=== PATIENT | female | born 1940 | race African-American/Black ===

== ENCOUNTER 2016-08-21 05:48 | Inpatient (IN) ==
[~2016-08-21 05:48] MED LIST: ONDANSETRON 4 MG/2 ML VIAL IV STA
[2016-08-21] MEDS: NITROGLYCERIN DRIP 50 MG/250 ML BOTTLE IV SCH (05:54)
[2016-08-21] MEDS ORDERED: MORPHINE 2 MG/1 ML SYRINGE IV STA (05:56)
[2016-08-21] MEDS ORDERED: ASPIRIN 325 MG TABLET PO STA (05:56)
--- NOTE | 2016-08-21 05:56 | Emergency Department Note ---
Arrival <MyersRudy Xochilt - Last Filed: 08/21/16 05:58> <Jame Moore - Last Filed: 08/21/16 06:29> - Arrival Time Seen by Provider: 08/21/16 05:54 - History of Present Illness HPI Narrative: The patient arrives at the end of my shift. She arrives via ambulance with BiPAP in place. They called and was because she awoke acutely short of breath. She had decreased O2 sats at the EMS arrival. The patient has responded somewhat to BiPAP. She claims she takes no medications and has no prior medical history. She awoke acutely short of breath. She has had no nausea vomiting. She denies headache. She does not think she has had fever. (Rudy Myers) Allergies/Adverse Reactions: Allergies Allergy/AdvReac Type Severity Reaction Status Date / Time No Known Allergies Allergy Unverified 06/25/15 20:57 Home Medications: Home Medications Medication Instructions Recorded Confirmed Type No Known Home Medications [No 06/25/15 08/21/16 History Known Home Medications] Review of System - Review of System 12 point system: reviewed and no additional remarkable complaints except as stated <MyersRudy Xochilt - Last Filed: 08/21/16 05:58> Medical,Surgical,& Family Hx - Medical History Cardio: No history of: Hypertension Endocrine: No history of: Diabetes Mellitus (IDDM) <MyersRudy Xochilt - Last Filed: 08/21/16 05:58> Exam <LouisRudy Xochilt - Last Filed: 08/21/16 05:58> <Jame Moore - Last Filed: 08/21/16 06:29> Physical Examination: General: Patient is well-developed and well-nourished with moderate distress noted. She is tachypneic. HEENT: The extraocular muscles are intact. Oropharynx is moist. There is no erythema or exudate. The tympanic membranes are shiny bilaterally. Neck: There is no adenopathy. Full range of motion is noted without pain. The trachea is midline. No JVD is present. Lungs: There is normal excursion of the chest with the lungs demonstrating rales and rhonchi bilaterally. No subcostal retractions are present. There is no point tenderness present. Heart: The heart has a regular rate and rhythm with no gallops or murmurs. Abdomen: The abdomen is nontender and nondistended with no rebound, guarding, or masses. Bowel sounds are normal. Back: The back demonstrates a normal appearance with no evidence of trauma. Genitourinary: Not examined. Extremities: The extremities demonstrate no clubbing, cyanosis, or edema. The visualized range of motion is normal. They appear atraumatic. Neuro: Cranial nerves II through XII are checked and intact. There is no focal motor or sensory deficit seen in the extremities. Skin: Skin is warm and dry with no evidence of rash. (Rudy Myers) Vital Signs: Vital Signs Temperature 98.3 F 08/21/16 05:48 Pulse Rate 123 H 08/21/16 05:48 Respiratory Rate 26 H 08/21/16 05:48 Blood Pressure 255/137 08/21/16 05:48 O2 Sat by Pulse Oximetry 98 08/21/16 05:48 Course - Reevaluation(s) Time: 05:58 <Rudy Myers - Last Filed: 08/21/16 05:58> <Jame Moore - Last Filed: 08/21/16 06:29> Course Narrative: Patient was given Lasix and nitroglycerin infusion upon arrival. Patient placed on a Cardene infusion at 7.5 mg/h. Blood pressure has been decreasing, pulse rate decreasing, with increasing oxygen saturation since addition of cardene. Patient also placed on BiPAP at 14/8. (Jame Moore) - Reevaluation(s) Reevaluation #1: Dr. Nicholas Moore will assume care of the patient. (Rudy Myers) Results <Rudy Myers - Last Filed: 08/21/16 05:58> - Labs CBC & BMP: 08/21/16 06:01 Lab Results: I have reviewed the patients labs - Diagnostic Findings Procedure: Chest x-ray: image reviewed by me (Increased pulmonary markings bilaterally consistent with pulmonary edema. Cardiomegaly.) <Jame Moore - Last Filed: 08/21/16 06:29> - Labs Labs: Laboratory Tests 08/21/16 08/21/16 08/21/16 05:55 06:01 06:01 WBC 10.5 Hgb 12.5 Hct 41.2 Plt Count 253 INR 1.1 Urine pH 5.0 Ur Specific [place] 1.013 Urine RBC 6 Urine WBC 2 (Jame Moore) Critical Care Time <Rudy Myers - Last Filed: 08/21/16 05:58> Critical Care Time: Yes Total Critical Care Time: 60 <Jame Moore - Last Filed: 08/21/16 06:29> Attestation: Patient given nitroglycerin infusion, Cardene infusion, Lasix IV and placed on BiPAP. (Jame Moore) Disposition <Rudy Myers - Last Filed: 08/21/16 05:58> Case discussed with: patient, patient's family <Jame Moore - Last Filed: 08/21/16 06:29> Clinical Impression: Hypertensive emergency, Pulmonary edema Disposition: Still a Patient Condition: Critical
[2016-08-21] MEDS ORDERED: niCARdipine 25 MG/10 ML VIAL IV ONE (05:58)
[2016-08-21] MEDS: niCARdipine INJ 25 MG in SODIUM CHLORIDE 0.9% 240 ML IV SCH (06:03)
[2016-08-21] MEDS ORDERED: FUROSEMIDE 100 MG/10 ML VIAL ONE (06:08)
[2016-08-21] MEDS ORDERED: ONDANSETRON 4 MG/2 ML VIAL ONE (06:08)
[2016-08-21 06:10] LABS: Basophils % 0.3 % (0.0-0.8); Eosinophils # 0.1 10*3/uL (0.0-0.87); Hematocrit 41.2 VOL% (35.7-47.0); Hemoglobin 12.5 GM/DL (12.0-16.0); Immature Granulocytes % 1.2 %; Immature Granulocytes Absolute 0.13 #; Lymphocytes # 6.6 10*3/uL (1.4-4.0); Lymphocytes % 62.5 % (21.3-54.2); Mean Corpuscular HGB Conc 30.3 GM/DL (32-36); Mean Corpuscular Hemoglobin 29 PG (27-34); Mean Corpuscular Volume 95.6 FL (87-102); Monocytes # 0.6 10*3/uL (0.11-0.8); Platelet Count 253 T/CUMM (130-400); Red Blood Count 4.31 MC/CUMM (3.8-5.5); Red Cell Distribution Width 20.2 % (9.3-17.3); White Blood Count 10.5 T/CUMM (4-12)
[2016-08-21 06:15] LABS: Apearance,Urine Slightly Hazy (Clear); Bacteria,Urine Occasional /HPF (Few); Bilirubin,Urine Negative (Negative); Blood, Urine Negative (Negative); Glucose,Urine (UA) 50 mg/dL (Negative); Ketones,Urine Negative (Negative); Mucus,Urine Occasional /LPF (Occasional); Nitrite,Urine Negative (Negative); Protein,Urine 100 MG/DL; RBC,Urine 6 /HPF (0-4); Squamous Epithelial Cell,Urine Occasional /HPF (0-10); Urine Color Yellow (Yellow); Urine Specific Gravity 1.013 (1.001-1.035); Urine Urobilinogen < 2.0 EU/DL (0.2-1.0); WBC,Urine 2 /HPF (0-6)
[2016-08-21 06:19] LABS: INR 1.1; PT Patient Result 11.7 SECS
[2016-08-21] MEDS ORDERED: ASPIRIN 325 MG TABLET ONE (06:32)
[2016-08-21 06:36] LABS: Lymphocytes 69 % (20-55); Macrocytosis 1+; Platelet Estimate Adequate; Polychromasia Slight; Segmented Neutrophils 27 % (50-85); Total Cells Counted 100
[2016-08-21 06:40] LABS: Albumin 3.3 G/DL (3.4-5.0); Bilirubin,Total 0.5 MG/DL (0.2-1.0); Potassium 3.5 MMOL/L (3.5-5.1); Total Protein 7.5 G/DL (6.4-8.3)
[2016-08-21] MEDS ORDERED: ZALEPLON 5 MG CAPSULE PO PRN (06:51)
[2016-08-21] MEDS ORDERED: MORPHINE 2 MG/1 ML SYRINGE IV PRN (06:51)
[2016-08-21] MEDS ORDERED: ACETAMINOPHEN 325 MG TABLET PO PRN (06:51)
[2016-08-21] MEDS ORDERED: ONDANSETRON 4 MG/2 ML VIAL IV PRN (06:51)
[2016-08-21 07:13] LABS: Troponin I Only < 0.015 NG/ML (0.00-0.045)
--- NOTE | 2016-08-21 07:25 | XRay Report ---
XR chest 1V portable Indication: Chest pain Comparison: 25 June 2015 Findings: The heart and mediastinum are stable in size and configuration. The pulmonary vascularity is increased with bilateral increased interstitial lung density. No other lung infiltrates, effusions, pneumothorax or other abnormality is demonstrated. Impression: Findings suggest cardiac decompensation. PROCEDURE INTERPRETED AT [facility] DEPARTMENT OF RADIOLOGY Final Report Signed by: Dr. Juan Carlos Cuello
--- NOTE | 2016-08-21 07:36 | Hospitalist History & Physical ---
<Bonilla Freire - Last Filed: 08/21/16 07:49> Assessment and Plan - Time spent with patient Time spent with patient: Less than 30 minutes (1) Hypertensive emergency Status: Acute Assessment and plan: Continue Cardene gtt. Will consult cardiology for evaluation. Will obtain echo, carotids, lipid panel, HGA1C, Thyroid panel, and renal ultrasound. Current Visit: Yes (2) Pulmonary edema Status: Acute Assessment and plan: We will diurese. Will recheck BNP and cxr in AM. Continue bi-pap; consult pulmonology. Current Visit: Yes History of Present Illness Chief complaint: shortness of breath History of present illness: This is very unfortunate 76 year old female that presented to the ED this morning per EMS with a chief compliant of shortness of breath. She reports no medical history at the time of presentation. In addition, she reports that she takes no medications. She reports an acute onset of shortness of breath while sleeping. She reports that she was asleep and started "gasping in her sleep". She described the symptoms as "drowning". She was very alarmed and called for emergency assistance.At the time of EMS arrival, she was anxious with experiencing profound dyspnea with oxygen saturations in the 70's. She was placed on bi-pap at that time and transported to [facility] for evaluation. At the time of ED presentation, she was found to be grossly hypertensive at 255/ 137; however her respiratory status had slightly improved. She was placed ion a Cardene drip for management of her blood pressures.Labs were obtained; which revealed a BNP of 1148 and noted elevations in her hepatic function with an AST of 92, ALT of 108, and Alkaline phosphate of 209. Chest radiograph suggests cardiac decomposition. After discussion with both Dr. Moore and Dr. Fernandez, the patient will be admitted under the hospitalist services for continuation of care. We will consult pulmonary and cardiology to assist. Home Medications Medication Instructions Recorded Confirmed Type No Known Home Medications [No 06/25/15 08/21/16 History Known Home Medications] Allergies Allergy/AdvReac Type Severity Reaction Status Date / Time No Known Allergies Allergy Unverified 06/25/15 20:57 Medical,Surgical,& Family Hx - Medical History Cardio: No history of: Hypertension HEENT: History of: Glaucoma Endocrine: No history of: Diabetes Mellitus (IDDM) - Social History Smoking Status: Never smoker Frequency of Alcohol Use: None Type of Drug Use: None 12 point system: reviewed and no additional remarkable complaints except as stated Exam - Constitutional Vitals: Period Temp Pulse Resp BP Sys/Rivas Pulse Ox Last 24 Hr 98.3 F-98.3 F 94-123 19-26 119-255/53-137 98-100 General appearance: normal weight, mild distress - Head Head exam: Present: normal inspection, normocephalic, atraumatic - Eye Eye exam: Present: EOMI. Absent: conjunctival injection, nystagmus Pupils: Present: SHAYLA, normal accommodation - ENT ENT exam: Present: normal exam, normal external ear exam, normal oropharynx - Neck Neck exam: Present: normal inspection. Absent: lymphadenopathy, meningismus, tenderness, thyromegaly - Respiratory Respiratory exam: Present: accessory muscle use, prolonged expiratory phase, rhonchi. Absent: clear to auscultation bilaterally, chest wall tenderness, decreased breath sounds, rales, stridor, wheezes - Cardiovascular Cardiovascular exam: Present: JVD, tachycardia. Absent: carotid bruit, diastolic murmur, gallop, rubs, systolic murmur - GI/Abdominal GI/Abdominal exam: Present: normal bowel sounds, soft. Absent: firm, guarding, tenderness - Extremities Exam Extremities exam: Present: normal inspection, full ROM - Back Exam Back exam: Present: normal inspection - Neurological Exam Neurological exam: Present: alert, oriented X3, CN II-XII intact - Psychiatric Psychiatric exam: Present: anxious - Skin Skin exam: Present: normal color, warm, dry Results - Labs CBC & BMP: 08/21/16 06:01 08/21/16 06:01 Lab Results: I have reviewed the past 24 hour labs - Diagnostic Findings Procedure: Chest x-ray: other (cardiac decomposition) <Manpreet Fernandez - Last Filed: 08/21/16 11:32> Assessment and Plan - Time spent with patient Time spent with patient: Greater than 30 minutes (1) Acute CHF Status: Acute Assessment and plan: IV lasix. Consult Cardiology, f/u echo report. Current Visit: Yes (2) Hypertensive emergency Status: Acute Current Visit: Yes (3) Pulmonary edema Status: Acute Assessment and plan: Will do ABG, may able to take off Bipap. Consult Pulm. Current Visit: Yes (4) Acute dyspnea Status: Acute Assessment and plan: IV lasix, Oxygen, resp care. Current Visit: Yes History of Present Illness History of present illness: I saw and examed pt in her room today. I reviewed pt's lab results, CXR report and iamge today. I discussed with pt, Pulm, and RN in regarding her clinical status today. I agree with history, physical, assessmement and plan listed as above by our UNIT CLERK. Pt has family history of HTN. Past surgical history is reviewed. Pt does not take meds at home. Adm to CCU for Savana drip to control BP. Start IV lasix 40mg BID, Norvasc and Metoprolol. Consult Pulm and Cardiology. F/u echo report. Reeval in am. DVT and GI prophy. Adm for in pt care. Time spent: 55 min. Exam - Constitutional Vitals: Period Temp Pulse Resp BP Sys/Rivas Pulse Ox Last 24 Hr 98 F 93-101 17-23 117-142/53-67 96-100 Results - Labs CBC & BMP: 08/21/16 06:01 08/21/16 06:01
[2016-08-21 08:00] LABS: Risk Ratio 3.34; Thyroid Stimulating Hormone 5.87 uIU/ml (0.358-3.74)
--- NOTE | 2016-08-21 08:14 | EKG Report ---
Stationary ECG Study [facility] ER Test Date: 08/21/2016 5:56:55 AM Pat Name: AGGIE LUBIN Department: Room: 126 Gender: F Test Man: HUNTER : 1940 Requested by: Rudy Myers Order Number: [id number] Reading MD: IVORY VEGA Intervals [place] Rate: 136 P: 53 CO: 152 QRS: -44 QRSD: 96 T: 71 QT: 382 QTc: 461 Interpretive Statements PROBABLY SINUS TACHYCARDIA MARKED LEFT AXIS DEVIATION MINIMAL ST DEPRESSION Electronically Signed On 08-25-16 11:37:40 CDT by IVORY VEGA [email or web address]
--- NOTE | 2016-08-21 09:38 | EKG Report ---
Stationary ECG Study [facility] Test Date: 08/21/2016 9:37:52 AM Pat Name: AGGIE LUBIN Department: Room: 126 Gender: F Extension Professor: MANJULA : 1940 Requested by: Rudy Myers Order Number: [id number] Reading MD: IVORY VEGA Intervals [place] Rate: 93 P: 80 NE: 164 QRS: -9 QRSD: 102 T: 189 QT: 391 QTc: 442 Interpretive Statements SINUS RHYTHM WITH OCCASIONAL VENTRICULAR PREMATURE COMPLEXES MODERATE T-WAVE ABNORMALITY, CONSIDER LATERAL ISCHEMIA Electronically Signed On 08-25-16 11:50:05 CDT by IVORY VEGA [email or web address]
[2016-08-21] MEDS: FUROSEMIDE 40 MG/4 ML VIAL IV SCH ×2 (10:25→20:51)
[2016-08-21] MEDS: PANTOPRAZOLE 40 MG TABLET PO SCH (10:25)
[2016-08-21] MEDS: METOPROLOL TARTRATE 25 MG TABLET PO SCH ×2 (10:25→20:51)
[2016-08-21] MEDS: ENOXAPARIN 40 MG/0.4 ML SYRINGE SUBCUT SCH (10:25)
[2016-08-21] MEDS: amLODIPine 5 MG TABLET PO SCH (10:25)
[2016-08-21 10:26] LABS: Allen Test Positive; Pt O2 Delivery Device BIPAP
[2016-08-21 10:27] LABS: ABG Base Excess 0.9 MMOL/L (-2.5-2.5); ABG HCO3 25.3 MMOL/L (20-26); ABG Oxygen Saturation 99.6 % (95-100); ABG PCO2 39.7 MM HG (35-48); ABG PH 7.415 (7.35-7.45); ABG TCO2 22.7 MMOL/L (23-27)
--- NOTE | 2016-08-21 10:44 | Pulmonology Consult Note ---
History of Present Illness Chief complaint: Acute CHF. KRUEGER. S OB. Orthopnea. HBPpoor control History of present illness: Ms. Rojo is a 76 year old black female who arrived been asked to see in pulmonary consultation for evaluation and treatment. This patient was just admitted through the emergency room. She said she woke up in the middle of the night severely short of breath she did not have any significant cough. She said she felt like she was drowning. She absolutely denies any chest pain. She denies dysphagia. At times she does have gastroesophageal reflux and this is controlled with Pepcid. She denies any peripheral edema. Patient says she takes no medicines on a regular basis and that she has been in her usual health able to get around and do things without any symptoms. She has had no sputum and no hemoptysis. She denies any pain in her legs. The remainder the review of systems is negative. Allergies. None known Home medicines. Occasional Pepcid. Past history. Gastroesophageal reflux Social history patient denies alcohol and she says she has never smoked Family history. Noncontributory. Chest x-ray. [place] pulmonary edema. Lab. Natruretic peptide is elevated 1148. Alkaline Carolyn is elevated at 209. Transaminases are elevated. Total bilirubin is 0.5. Sodium potassium and chloride are within the normal range. Creatinine is 0.9 with a BUN of 20. White blood cell count is 10,500 with 29 segs and 62.5 lymphs. Platelets of 258 ,000. H&H is 12.5/41.2 with normal indices and elevated red blood cell distribution with platelets 253,000. INR is 1.1. Free T4 is elevated 1.71 but TSH is also elevated 5.870 total protein is normal at 7.5 albumin is low at 3.3 globulins are slightly up at 4.2. Lipids are noted. Urine shows no evidence of infection. ABGs. FiO2 100%. PH is 7.415. PCO2 is 39.7. PO2 is 184. Bicarb is 25.3. Physical exam. Vital signs. See below note that admit blood pressures were markedly elevated and these have now come under control. Psychiatric. Oriented 3. Good historian. Eyes lips tongue are normal. Neck is symmetrical with no meningismus. Thyroid was not palpated. Lymphatics. No submandibular cervical supraclavicular or epitrochlear adenopathy. Neurologic. Cranial nerves are intact. Long track motor functions intact. Chest. Stiff breath sounds close to the year which are probably round. Heart. Lateral PMI. Slightly hyper dynamic precordium. Abdomen. Nontender. Positive bowel sounds Extremities. Trace of pretibial edema. Knee Musculoskeletal no gross abnormalities of the cervical thoracic and lumbar spine noted while the patient is lying in bed Skin of face and hands show no cancerous infectious lesions no other areas were examined. Arterial carotid upstroke is fair upper extremity pulses are palpable lower extremity pulses nonpalpable no evidence of lower extremity ischemia Venous exam of the neck and upper extremities are normal lower extremities show trace of pedal edema pedal edema bilaterally. The remainder the exam is noncontributory. Impression. 1. Acute severe shortness of breath. Based on chest x-ray and lab this appears to be acute congestive heart failure. Chest x-ray is markedly change compared to an old chest x-ray 2. Severe hypoxemia probably secondary to #1. Look for other causes. 3. High blood pressure under poor control prior to admission. 4. History of gastroesophageal reflux disease. 5. Abnormal liver function tests. Etiology undetermined. 6. Elevated TSH and free T4. We will repeat free T4 is these are not likely correct. 7. Elevated glucoses. Look for underlying diabetes mellitus. Plan. 1. Diuresis 2. Daily chest x-ray ABGs BMP and BNP 3. Repeat thyroid function tests 4. Ultrasound of the liver 5. Doppler venograms of the lower extremities 6. See orders Home Medications Medication Instructions Recorded Confirmed Type No Known Home Medications [No 06/25/15 08/21/16 History Known Home Medications] Allergies Allergy/AdvReac Type Severity Reaction Status Date / Time No Known Allergies Allergy Unverified 06/25/15 20:57 Exam (Pulmonay) H&P - Constitutional Vitals: Period Temp Pulse Resp BP Sys/Rivas Pulse Ox Last 24 Hr 98 F 93-101 17-23 117-142/53-67 96-100 Medical,Surgical,& Family Hx - Medical History Cardio: No history of: Hypertension HEENT: History of: Glaucoma Endocrine: No history of: Diabetes Mellitus (IDDM) Hematology: History of: Anemia - Surgical History Cardiac Surgeries: Patient Denies: Cardiac Catheterization Thoracic Surgeries: Patient denies;: Organ Transplant - Family History Family History: Reports;: Family Diabetes (mother), Family Heart Disease (sister , father), Family Hypertension (sister, brother, mother, father) Denies;: Family Cancer, Family Hematology, Family Psychiatric Problems, Family Stroke, Additional Family History - Social History Smoking Status: Former smoker Frequency of Alcohol Use: None Type of Drug Use: None Results - Labs CBC & BMP: 08/21/16 06:01 08/21/16 06:01
--- NOTE | 2016-08-21 10:47 | Ultrasound Report ---
Venous Doppler ultrasound bilateral lower extremities Indication: Shortness of breath Comparison: None available Findings: No evidence of echogenic, noncompressible thrombus seen in the visualized veins of the extremities. Color Doppler venous waveform pattern is within normal limits. Impression: No evidence of deep venous thrombosis. Ultrasound images stored and captured. PROCEDURE INTERPRETED AT [facility] DEPARTMENT OF RADIOLOGY Final Report Signed by: Dr. Juan Carlos Cuello
--- NOTE | 2016-08-21 10:52 | Ultrasound Report ---
Renal ultrasound Indication: TOD Comparison: None available Findings: Kidneys are normal in size and echogenicity. No hydronephrosis or nephrolithiasis is seen. The right renal length is 10.6 cm. The left renal length is 10.8 cm. No free fluid or other abnormality is seen. Impression: No evidence of abnormality demonstrated. Ultrasound images stored and captured. PROCEDURE INTERPRETED AT [facility] DEPARTMENT OF RADIOLOGY Final Report Signed by: Dr. Juan Carlos Cuello
--- NOTE | 2016-08-21 11:10 | Ultrasound Report ---
Carotid artery ultrasound Indication: Congestive heart failure, hypertension Comparison: None available Color Doppler flow and spectral analysis was performed. Findings: Small amount of atherosclerotic plaque is present in both proximal internal carotid arteries. The peak systolic velocity in the right is 109 cm/s . Ratio of flow is 1.3. The peak systolic velocity in the left is 96 cm/s . Ratio of flow is 1.3 Bilateral antegrade vertebral flow is seen. Impression: No evidence of hemodynamically significant stenosis is seen, 0-49% estimated stenosis. Consensus conference on the carotid ultrasound criteria used. Ultrasound images were captured and stored. PROCEDURE INTERPRETED AT [facility] DEPARTMENT OF RADIOLOGY Final Report Signed by: Dr. Juan Carlos Cuello
--- NOTE | 2016-08-21 11:10 | Cardiology Consult Note ---
<Soo Frank E - Last Filed: 08/21/16 11:00> Assessment and Plan - Time spent with patient Time spent with patient: Greater than 30 minutes (Due to assessment, plan, and documentation.) (1) Hypertensive emergency Status: Acute Assessment and plan: Required Cardene infusion in the emergency room. This is currently being held. Blood pressure is currently within normal limits. She has been started on metoprolol 25 mg p.o. twice daily, Norvasc 5 mg p.o. daily. Current Visit: Yes (2) Pulmonary edema Status: Acute Assessment and plan: Echocardiogram is pending. Pulmonology is following. Continue oxygen as needed. Will receive Lasix 40 mg IV every 12 hours. Current Visit: Yes (3) Acute dyspnea Status: Acute Assessment and plan: Bilateral lower extremity venous Dopplers negative for DVT. Carotid ultrasound pending. Echocardiogram pending. Her dyspnea is most likely related to acute onset CHF. She will be diuresed and monitored closely. Dr. Murray to follow with further plan and addendum. Current Visit: Yes (4) History of gastroesophageal reflux (GERD) Status: Chronic Assessment and plan: Well controlled with Pepcid. Current Visit: Yes (5) Former smoker Status: Chronic Assessment and plan: Quit smoking 2 years ago. Formally smoked for approximately 55 years. Current Visit: Yes History of Present Illness - Data of Consult Patient: new to practice Consult date: 08/21/16 Requesting Physician: Rebel Fermin Primary care physician: Jose Juan Shepherd - Consult Narrative Reason for consult: SOB, hypertensive urgency History of present illness: COMMUNITY HEALTH REPRESENTATIVE: NONE PCP: JOSE JUAN SHEPHERD NP Ms. 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 She does not have a significant medical history. She has occasional gastroesophageal reflux disease that is controlled with Pepcid. Surgical history includes prior hysterectomy, otherwise noncontributory. She takes no medications on a regular basis. Risk factors are significant for: Hypertension, age, family history of CAD, former smoker. She reports she quit smoking approximately 2 years ago but was previously a light smoker for approximately 55 years. She tells me her father had CABG at age 62, sister had CABG at 69, and her 2 brothers also have heart problems. She has seen Dr. Davis, gambling floor supervisor, in the past for colonoscopy and post polypectomy colonic bleeding June 2015 requiring transfusion of PRBCs. Jose Juan Hernandez NP has been following her for anemia. H&H on admission is normal. She presented to the emergency room this morning with acute dyspnea. She tells me that she woke up this morning to go the bathroom when she returned to bed she felt like she could not breathe. This was worse when she tried to lay down and she states she felt like she was drowning. She denies any chest pain, palpitations, dizziness, lightheadedness, or syncope. She reports she has not noticed any swelling recently. Up until this morning, she has been in her usual state of health and has not had any activity limitations. She denies painful inspiration, cough. Renal ultrasound shows no evidence of abnormality. Bilateral lower extremity venous Doppler reveals no evidence of DVT. Bilateral carotid ultrasound and liver ultrasound are pending. On admission, her creatinine is 0.9, BNP 1148, potassium 3.5, elevated LFTs. Triglycerides are 100, total cholesterol 197, LDL 127, HDL 59. Her TSH and free T4 also elevated. Dr. Murray to follow with further plan and addendum. CC: Manpreet Fernandez MD - Home Medications and Allergies Home Medications: Home Medications Medication Instructions Recorded Confirmed Type No Known Home Medications [No 06/25/15 08/21/16 History Known Home Medications] Allergies/Adverse Reactions: Allergies Allergy/AdvReac Type Severity Reaction Status Date / Time No Known Allergies Allergy Unverified 06/25/15 20:57 Review of systems: - Constitutional: Present: As per HPI. Absent: anorexia, chills, daytime sleepiness, excessive sweating, fever(s), frequent falls, headache(s), increased appetite, lethargy, malaise, night sweats, stops breathing during sleep, weakness, weight gain, weight loss, fatigue. - EENT Eyes: Present: As per HPI. Absent: blurry vision, diplopia, loss of vision Ears: Present: As per HPI. Absent: decreased hearing, ear discharge, ear pain Nose, mouth and throat: Present: As per HPI. Absent: dysphagia, epistaxis, headache(s), hoarseness, lip swelling, nasal congestion, neck mass, neck pain, sinus pressure, sore throat, throat swelling, tongue swelling, vertigo - Cardiovascular: Present: dyspnea, as per HPI. Absent: chest pain at rest, chest pain with activity, dyspnea on exertion, edema, claudication, diaphoresis , radiating jaw, neck or arm pain, lightheadedness, orthopnea, palpitations, PND - Respiratory: Present: dyspnea, as per HPI. Absent: dyspnea on exertion, cough , hemoptysis, wheezing, snoring, pain on inspiration - Gastrointestinal: Present: constipation, occasional heartburn, As per HPI. Absent: abdominal pain, bloating, change in bowel habits, diarrhea, hematemesis , hematochezia, loose stools, melena, nausea, vomiting - Genitourinary: Present: As per HPI. Absent: difficulty urinating, dysuria, flank pain, hematuria, nocturia, urinary frequency, urinary incontinence - Musculoskeletal: Present: As per HPI. Absent: arthralgias, back pain, joint swelling, limited range of motion, muscle cramps, muscle weakness, myalgias - Neurological: Present: As per HPI. Absent: abnormal gait, abnormal speech, behavioral changes, confusion, convulsions, disequilibrium, dizziness, focal weakness, frequent falls, headache(s), memory loss, numbness, paresthesias, radicular pain, syncope, tremor(s) - Psychiatric: Present: As per HPI. Absent: anxiety, confusion, depression, panic attacks - Endocrine: Present: As per HPI. Absent: cold intolerance, fatigue, heat intolerance, polydipsia, polyphagia - Hematologic/Lymphatic: Present: As per HPI. Absent: easy bleeding, easy bruising, lymphadenopathy Medical,Surgical,& Family Hx - Medical History Cardio: No history of: Hypertension HEENT: History of: Glaucoma Endocrine: No history of: Diabetes Mellitus (IDDM) Hematology: History of: Anemia (Requiring previous blood transfusion.) - Surgical History Cardiac Surgeries: Patient Denies: Cardiac Catheterization Thoracic Surgeries: Patient denies;: Organ Transplant Reproductive Surgeries: Surgical HX of;: Hysterectomy - Family History Family History: Reports;: Family Diabetes (mother), Family Heart Disease (sister , father), Family Hypertension (sister, brother, mother, father) Denies;: Family Cancer, Family Hematology, Family Psychiatric Problems, Family Stroke, Additional Family History - Social History Smoking Status: Former smoker Have you smoked in the last 12 months: No Frequency of Alcohol Use: None Type of Drug Use: None Marital Status: Lives With:: Alone Functional capacity: independent ambulation Physical Examination Vital Signs Temp Pulse Resp BP Pulse Ox 98.3 F 123 H 26 H 255/137 98 08/21/16 05:48 08/21/16 05:48 08/21/16 05:48 08/21/16 05:48 08/21/16 05:48 Other: General appearance: Pleasant and cooperative. Normal weight. - Head Head exam: Present: normal inspection, normocephalic, atraumatic. Absent: hematoma, laceration - Eye Eye exam: Present: EOMI. Absent: conjunctival injection, nystagmus, periorbital swelling, scleral icterus, laceration to eyelids Pupils: Present: PERRL. Absent: constricted, dilated, fixed, irregular, unequal - ENT ENT exam: Present: normal exam, normal external ear exam - Neck Neck exam: Present: normal inspection. Absent: lymphadenopathy, meningismus, tenderness - Respiratory Respiratory exam: Present: Bibasilar crackles noted posteriorly. Absent: accessory muscle use, chest wall tenderness - Cardiovascular Cardiovascular exam: Present: regular rate and rhythm. Absent: carotid bruit, gallop, JVD, rubs, murmur - GI/Abdominal GI/Abdominal exam: Present: normal bowel sounds, soft. Absent: distended, firm , guarding, hernia, mass, tenderness, rebound. - Extremities Exam Extremities exam: Present: normal inspection, normal capillary refill. Upper extremity pulses 2+. Lower extremity pulses 2+. Trace pitting edema to bilateral lower extremities. Absent: calf tenderness - Back Exam Back exam: Present: normal inspection. Absent: muscle spasm, vertebral tenderness - Neurological Exam Neurological exam: Present: alert, oriented X3, grossly intact without resting or essential tremor - Psychiatric Psychiatric exam: Present: normal affect, normal mood - Skin Skin exam: Present: normal color, warm, dry, intact. Absent: cyanosis, diaphoretic, rash, urticaria Result/EKG - Labs CBC & BMP: 08/21/16 06:01 08/21/16 06:01 Labs: Laboratory Results - last 24 hr 08/21/16 08/21/16 08/21/16 07:39 10:22 Unknown ABG pH 7.415 ABG pCO2 39.7 ABG pO2 184.0 H ABG HCO3 25.3 ABG Total CO2 22.7 L ABG O2 Saturation 99.6 ABG Base Excess 0.9 FiO2 100.00 Triglycerides 100 Cholesterol 197 LDL Cholesterol 127.0 VLDL Cholesterol 20.0 HDL Cholesterol 59 Heart Disease Risk Ratio 3.34 Free T4 1.71 H TSH 3rd Generation 5.870 H <Dany Murray - Last Filed: 08/21/16 12:07> History of Present Illness - Consult Narrative History of present illness: Patient personally interviewed and examined and chart reviewed. Discussed case with Soo Frank COMPUTER OPERATIONS MANAGER. I agree with the history as well as examination assessment. In summation in addition Ms. Rojo is a 76 year old female who overall is not had any kind of cardiac history or cardiac testing previously. The patient presented short of breath that apparently woke her up at home and was found to have primary vascular congestion and severely elevated blood pressure of 255/ 137. Patient was started on Cardizem infusion. She was given Lasix IV. Her chest x-ray appeared to have congestive heart failure and some cardiomegaly. With therapy and diuresis the patient's blood pressures normalized and she is breathing much better. She has no complains this time. We await her echocardiogram. Her lab work revealed normal CBC, but her blood gases are unremarkable, chemistries with normal troponin but elevated BNP. Potassium was borderline. We await the patient's echocardiogram at this time. She has serial cardiac enzymes will allow work ordered. We will monitor the patient with the primary service. Further recommendations to follow after evaluation has continued. CC: Manpreet Fernandez MD Physical Examination Vital Signs Temp Pulse Resp BP Pulse Ox 98.3 F 123 H 26 H 255/137 98 08/21/16 05:48 08/21/16 05:48 08/21/16 05:48 08/21/16 05:48 08/21/16 05:48 Result/EKG - Labs CBC & BMP: 08/21/16 06:01 08/21/16 06:01 Labs: Laboratory Results - last 24 hr 08/21/16 08/21/16 08/21/16 07:39 10:22 11:03 ABG pH 7.415 ABG pCO2 39.7 ABG pO2 184.0 H ABG HCO3 25.3 ABG Total CO2 22.7 L ABG O2 Saturation 99.6 ABG Base Excess 0.9 FiO2 100.00 Hemoglobin A1c Triglycerides 100 Cholesterol 197 LDL Cholesterol 127.0 VLDL Cholesterol 20.0 HDL Cholesterol 59 Heart Disease Risk Ratio 3.34 Free T4 1.34 TSH 3rd Generation 5.870 H 08/21/16 08/21/16 11:03 Unknown ABG pH ABG pCO2 ABG pO2 ABG HCO3 ABG Total CO2 ABG O2 Saturation ABG Base Excess FiO2 Hemoglobin A1c 5.4 Triglycerides Cholesterol LDL Cholesterol VLDL Cholesterol HDL Cholesterol Heart Disease Risk Ratio Free T4 1.71 H TSH 3rd Generation
[2016-08-21 12:17] LABS: Barbiturates Screen,Urine Negative (Negative); Benzodiazepines Screen,Urine Negative (Negative); Cannabinoid Screen,Urine Negative (Negative); Opiate Screen,Urine Positive (Negative); Phencyclidine Screen,Urine Negative (Negative)
--- NOTE | 2016-08-21 12:30 | EKG Report ---
Stationary ECG Study [facility] Test Date: 08/21/2016 12:29:55 PM Pat Name: AGGIE LUBIN Department: Room: 126 Gender: F Sales Office Manager: SANA : 1940 Requested by: Rudy Myers Order Number: [id number] Reading MD: IVORY VEGA Intervals [place] Rate: 86 P: 61 OK: 189 QRS: -27 QRSD: 113 T: 214 QT: 427 QTc: 470 Interpretive Statements SINUS RHYTHM BORDERLINE LEFT AXIS DEVIATION MILD INTRAVENTRICULAR CONDUCTION DELAY MODERATE T-WAVE ABNORMALITY, CONSIDER ANTEROLATERAL ISCHEMIA Electronically Signed On 08-25-16 11:54:56 CDT by IVORY VEGA [email or web address]
[2016-08-21 13:50] LABS: Troponin I Only 0.018 NG/ML (0.00-0.045)
--- NOTE | 2016-08-21 17:22 | Ultrasound Report ---
Exam: US liver Date: 08/21/2016 10:39 AM Comparison: None Indication: Elevated liver function tests Technique:[Multiple transabdominal real-time scans were obtained of the right upper quadrant. Color flow scans were obtained. Ultrasound images were captured and stored.] Findings: No gallbladder pathology is identified. CBD is normal in size measuring 4.6 mm. The liver is normal in size with no definite masses. The right kidney measures 95 mm length with no mass or hydronephrosis. The visualized pancreas and aorta have an unremarkable appearance. The aortic bifurcation is obscured by bowel gas. Color flow documented in the IVC. Impression: No definite right upper quadrant pathology identified. PROCEDURE INTERPRETED AT [facility] Final Report Signed by: Dr. Yancy Ortega
[2016-08-21 19:35] LABS: Troponin I Only 0.021 NG/ML (0.00-0.045)
--- NOTE | 2016-08-21 19:44 | ECHO Report ---
Wendy Rojo Exam Date: 08/21/2016 09:24 Referring Physician: Technologist: Angie Pa RDCS Age: 76 Ht (in): 62 Wt (lb): 120 Gender: F Exam Location: [facility] Echo Indications: Hypertensive emergency, Acute pulmonary edema, Dyspnea, unspecified, Essential (primary) hypertension, GERD, Heart failure, unspecified BP: 117 / 59 HR: 94 Rhythm: Sinus Technical Quality: Good IMPRESSIONS 1. Left ventricle is normal size with ejection fraction 35-40% with global hypokinesis. There is at least mild concentric left ventricular hypertrophy. 2. Right and left atrium are mildly enlarged. 3. There is no significant valvular abnormality anatomically or by Doppler. 4. There is a small hemodynamically insignificant pericardial effusion. 5. Pleural effusion appears to be present. MEASUREMENTS (Male / Female) Normal Values 2D ECHO LV Diastolic Diameter PLAX 4.9 cm 4.2 - 5.9 / 3.9 - 5.3 cm LV Systolic Diameter PLAX 4.0 cm LV Fractional Shortening PLAX 18.2 % IVS Diastolic Thickness 1.0 cm 0.6 - 1.0 / 0.6 - 0.9 cm LVPW Diastolic Thickness 1.1 cm 0.6 - 1.0 / 0.6 - 0.9 cm RV Internal Dim ED PLAX 3.2 cm Aortic Root Diameter 2.7 cm LA Systolic Diameter LX 4.4 cm 3.0 - 4.0 / 2.7 - 3.8 cm FINDINGS Left Ventricle Normal left ventricular cavity size. The overall ejection fraction appears to be 35-40%. There is at least mild concentric left ventricular hypertrophy Right Ventricle The right ventricle is normal in size and function. Right Atrium The right atrium is mildly enlarged. Left Atrium The left atrium is mildly enlarged. Mitral Valve Thickened mitral valve. Trace mitral valve regurgitation. Aortic Valve Aortic valve is a tricuspid structure with mild sclerosis without stenosis or regurgitation. Tricuspid Valve Morphologically normal tricuspid valve. Trace tricuspid valve regurgitation. Pulmonic Valve Morphologically normal pulmonic valve without significant stenosis. There is no pulmonic regurgitation. Pericardium Small hemodynamically insignificant pericardial effusion. There is a pleural effusion present. Aorta Normal ascending aorta dimension. Dany Murray MD (Electronically Signed) Final Date: 21 August 2016 19:43
[2016-08-22 05:14] LABS: Calcium 8.8 MG/DL (8.5-10.1); Magnesium 2.2 MG/DL (1.8-2.4); Osmolality,Calculated 284.8 MOS/KG (273-304)
[2016-08-22] MEDS: ENOXAPARIN 40 MG/0.4 ML SYRINGE SUBCUT SCH (06:09)
[2016-08-22] MEDS: NITROGLYCERIN DRIP 50 MG/250 ML BOTTLE IV SCH (06:09)
[2016-08-22] MEDS: niCARdipine INJ 25 MG in SODIUM CHLORIDE 0.9% 240 ML IV SCH (06:09)
--- NOTE | 2016-08-22 08:16 | Cardiology Progress Note ---
<Soo Frank E - Last Filed: 08/22/16 08:07> Assessment and Plan - Time spent with patient Time spent with patient: Less than 30 minutes (1) Hypertensive emergency Status: Acute Assessment and plan: Blood pressure is currently within normal limits. She has been started on metoprolol 25 mg p.o. twice daily, Norvasc 5 mg p.o. daily. Echo yesterday revealed EF of 35-40%. We will start her on low-dose CORI inhibitor. If she is unable to tolerate all these medications, we may need to discontinue the Norvasc. Current Visit: Yes (2) Pulmonary edema Status: Acute Assessment and plan: Echo revealed EF 35-40%. No significant valvular abnormalities. Pulmonology is following. Continue oxygen as needed. Will receive Lasix 40 mg IV every 12 hours. She has been diuresing well and is much improved today. Potassium is 3.0 today. We will start her on p.o. potassium replacement. Current Visit: Yes (3) Acute dyspnea Status: Acute Assessment and plan: Bilateral lower extremity venous Dopplers negative for DVT. Carotid ultrasound reveals no significant stenosis, 0-49%. Echocardiogram reveals EF 35-40%, no significant valvular abnormalities. Her dyspnea is most likely related to acute onset CHF. She will continue to be diuresed and monitored closely. She has been started on beta-shira and CORI inhibitor. Dr. Murray to follow with further plan and addendum. Current Visit: Yes (4) History of gastroesophageal reflux (GERD) Status: Chronic Assessment and plan: Well controlled with Pepcid. Current Visit: Yes (5) Former smoker Status: Chronic Assessment and plan: Quit smoking 2 years ago. Formally smoked for approximately 55 years. Current Visit: Yes Cardiology - PN: Subj Interval history: Animal Care Attendant: None, with the Dr. Murray following discharge PCP: Prudence Fields NP Ms. Rojo is doing well this morning. She is breathing much better and is only on O2 NBP. Blood pressure is much better controlled. She continues on metoprolol and Norvasc. Echocardiogram done yesterday reveals EF 35-40% with global hypokinesis and mild concentric left ventricular hypertrophy. There were no significant valvular abnormalities. We have started her on a low-dose CORI inhibitor. We may wind up needing to discontinue the Norvasc if she cannot tolerate these medications. Potassium is 3.0 today. We will start her on p.o. potassium replacement. Creatinine is 0.8. BNP remains elevated at 1573 today. She continues to have a few bibasilar crackles posteriorly. Today unable to hear a soft left carotid bruit. Carotid ultrasound yesterday revealed no significant stenosis bilaterally, 0-49%. Overall, she is much improved since admission. Exam (Progress Note) - Constitutional Vitals: Period Temp Pulse Resp BP Sys/Rivas Pulse Ox Last 24 Hr 97 F-98.4 F 76-102 15- 99-147/49-130 95-100 Exam: General: Present: Appears Well, No Apparent Distress. Pleasant and cooperative. Appears comfortable. HEENT: Present: PERRL, Normocephaly, atraumatic. Mucus Membranes Moist. No jaundice noted. Conjunctiva moist and clear, sclerae anicteric Neck: Present: Supple Neck, Midline Trachea, No Masses, soft left carotid bruit , No tenderness Cardiac: Present: Regular Rate and Rhythm, No Murmur Lungs: Present: Few bibasilar crackles posteriorly, otherwise clear to auscultation bilaterally. Neuro: Present: Awake, alert, and oriented x3. Moves all extremities well without hemiparesis or paralysis. Grossly Intact. Absent: Resting Tremor, Essential Tremor Abdomen: Present: Soft, Active Bowel Sounds, No Masses, Non-Tender, nondistended. No abdominal bruit or thrill noted. Skin: Present: Clear. Absent: Rash, No skin breakdown. Back: Normal inspection, no vertebral tenderness. Musculoskeletal: Present: No Fluid Collection, No Pain, Normal Range of Motion Extremities: Present: Normal Gait, No Clubbing, No Cyanosis, Upper Extr. Pulses 2+, Lower Extr. Pulses 2+, No edema. Capillary refill less than 3 seconds. Result/EKG - Labs CBC & BMP: 08/21/16 06:01 08/22/16 04:27 Lab Results: I have reviewed the past 24 hour labs Labs: Laboratory Results - last 24 hr 08/21/16 08/21/16 08/21/16 10:22 11:03 11:03 ABG pH 7.415 ABG pCO2 39.7 ABG pO2 184.0 H ABG HCO3 25.3 ABG Total CO2 22.7 L ABG O2 Saturation 99.6 ABG Base Excess 0.9 FiO2 100.00 Sodium Potassium Chloride Carbon Dioxide Anion Gap BUN Creatinine GFR Calculation BUN/Creatinine Ratio Glucose Hemoglobin A1c 5.4 Calculated Osmolality Calcium Magnesium Total Creatine Kinase CK-MB (CK-2) Troponin I B-Natriuretic Peptide Free T4 1.34 Urine Opiates Screen Ur Barbiturates Screen Ur Phencyclidine Scrn U Amphetamine/Methamph U Benzodiazepines Scrn U Cocaine Metab Screen U Cannabinoids Screen 08/21/16 08/21/16 08/21/16 11:48 12:59 19:01 ABG pH ABG pCO2 ABG pO2 ABG HCO3 ABG Total CO2 ABG O2 Saturation ABG Base Excess FiO2 Sodium Potassium Chloride Carbon Dioxide Anion Gap BUN Creatinine GFR Calculation BUN/Creatinine Ratio Glucose Hemoglobin A1c Calculated Osmolality Calcium Magnesium Total Creatine Kinase 95 97 CK-MB (CK-2) 3.9 H 3.3 Troponin I 0.018 0.021 B-Natriuretic Peptide Free T4 Urine Opiates Screen Positive H Ur Barbiturates Screen Negative Ur Phencyclidine Scrn Negative U Amphetamine/Methamph Negative U Benzodiazepines Scrn Negative U Cocaine Metab Screen Negative U Cannabinoids Screen Negative 08/21/16 08/22/16 08/22/16 Unknown 04:27 04:27 ABG pH ABG pCO2 ABG pO2 ABG HCO3 ABG Total CO2 ABG O2 Saturation ABG Base Excess FiO2 Sodium 144 Potassium 3.0 L Chloride 105 Carbon Dioxide 31 Anion Gap 11.0 BUN 10 Creatinine 0.80 GFR Calculation 71 BUN/Creatinine Ratio 12.00 Glucose 94 Hemoglobin A1c Calculated Osmolality 284.8 Calcium 8.8 Magnesium 2.2 Total Creatine Kinase CK-MB (CK-2) Troponin I B-Natriuretic Peptide 1573 H Free T4 1.71 H Urine Opiates Screen Ur Barbiturates Screen Ur Phencyclidine Scrn U Amphetamine/Methamph U Benzodiazepines Scrn U Cocaine Metab Screen U Cannabinoids Screen - EKG EKG results: interpreted by me, sinus rhythm <Dany Murray - Last Filed: 08/22/16 11:07> Cardiology - PN: Subj Interval history: Patient personally interviewed and examined by me as well as chart reviewed. Discussed case with Soo Frank NP. I agree with his history, exam and assessment. The patient's blood pressure doing much better on present regimen. She is not short of breath. Chest x-ray looks better. Her echocardiogram reveals the ejection fraction 35-40% with concentric left ventricular hypertrophy. This certainly would indicate a nonischemic type cardiomyopathy. Her exam reveals her likely fairly clear with a few crackles but good air movement. Cardiovascular exam is fairly unremarkable. She is stable at this time with continued elevated BNP. She needs continued treatment for her primary vascular congestion and cardiomyopathy. She needs continuing her beta shira and CORI inhibitor. She can go certainly to telemetry and hopefully discharge seen. Further workup can be carried out as an outpatient. Exam (Progress Note) - Constitutional Vitals: Period Temp Pulse Resp BP Sys/Rivas Pulse Ox Last 24 Hr 97 F-98.4 F 76-100 14-24 99-147/49-130 95-100 Result/EKG - Labs CBC & BMP: 08/21/16 06:01 08/22/16 04:27 Labs: Laboratory Results - last 24 hr 08/21/16 08/21/16 08/21/16 11:03 11:03 11:48 Sodium Potassium Chloride Carbon Dioxide Anion Gap BUN Creatinine GFR Calculation BUN/Creatinine Ratio Glucose Hemoglobin A1c 5.4 Calculated Osmolality Calcium Magnesium Total Bilirubin Direct Bilirubin Indirect Bilirubin AST ALT Alkaline Phosphatase Total Creatine Kinase CK-MB (CK-2) Troponin I B-Natriuretic Peptide Total Protein Albumin Free T4 1.34 Urine Opiates Screen Positive H Ur Barbiturates Screen Negative Ur Phencyclidine Scrn Negative U Amphetamine/Methamph Negative U Benzodiazepines Scrn Negative U Cocaine Metab Screen Negative U Cannabinoids Screen Negative 08/21/16 08/21/16 08/22/16 12:59 19:01 04:27 Sodium 144 Potassium 3.0 L Chloride 105 Carbon Dioxide 31 Anion Gap 11.0 BUN 10 Creatinine 0.80 GFR Calculation 71 BUN/Creatinine Ratio 12.00 Glucose 94 Hemoglobin A1c Calculated Osmolality 284.8 Calcium 8.8 Magnesium 2.2 Total Bilirubin Direct Bilirubin Indirect Bilirubin AST ALT Alkaline Phosphatase Total Creatine Kinase 95 97 CK-MB (CK-2) 3.9 H 3.3 Troponin I 0.018 0.021 B-Natriuretic Peptide Total Protein Albumin Free T4 Urine Opiates Screen Ur Barbiturates Screen Ur Phencyclidine Scrn U Amphetamine/Methamph U Benzodiazepines Scrn U Cocaine Metab Screen U Cannabinoids Screen 08/22/16 08/22/16 04:27 Unknown Sodium Potassium Chloride Carbon Dioxide Anion Gap BUN Creatinine GFR Calculation BUN/Creatinine Ratio Glucose Hemoglobin A1c Calculated Osmolality Calcium Magnesium Total Bilirubin 0.50 Direct Bilirubin 0.10 Indirect Bilirubin 0.4 AST 47 H ALT 72 H Alkaline Phosphatase 156 H Total Creatine Kinase CK-MB (CK-2) Troponin I B-Natriuretic Peptide 1573 H Total Protein 6.0 L Albumin 2.8 L Free T4 Urine Opiates Screen Ur Barbiturates Screen Ur Phencyclidine Scrn U Amphetamine/Methamph U Benzodiazepines Scrn U Cocaine Metab Screen U Cannabinoids Screen
--- NOTE | 2016-08-22 09:12 | Hospitalist Progress Note ---
Assessment and Plan (1) Hypertensive emergency Status: Acute Assessment and plan: Patient was on Cardene was admitted to the intensive care unit her blood pressure this morning is optimal for oral medications. Patient will do based on started on calcium channel shira with the Norvasc lower dose. 5 mg daily will probably be sufficient but hold the dose if systolic blood pressures less than 110. I would add a nonselective beta-shira or dose of carvedilol at 3.125 mg p.o. twice a day. Check thyroid function tests when I suggested we did with hypothyroidism. She is tachycardic she is underweight Current Visit: Yes (2) Pulmonary edema Status: Acute Assessment and plan: Continue to monitor on antihypertensive. Patient is not in pulmonary edema at this point. Is stable enough to be transferred to telemetry floor with monitoring. Current Visit: Yes Hospitalist: Subjective Interval history: Patient has been seen interviewed and examined she is awake alert and comfortable stating that she is breathing a lot better. Patient now 115/62 she denies any dizziness denies any shortness of breath denies any headaches. Denies taking any blood pressure medications at home but I suspect that she has had problems with blood pressure for some time. She claims that she ate a lot of potato chips and that is why blood pressure went up high. Exam - Constitutional Vitals: Period Temp Pulse Resp BP Sys/Rivas Pulse Ox Last 24 Hr 97 F-98.4 F 76-102 15-24 99-147/49-130 95-100 General appearance: under weight - Head Head exam: Present: normocephalic, atraumatic - Eye Eye exam: Present: EOMI, other (Anicteric sclera no conjunctival petechia) Pupils: Present: SHAYLA - ENT ENT exam: Present: normal oropharynx - Neck Neck exam: Present: other (Neck is supple no JVD no bruitsTrachea) - Respiratory Respiratory exam: Present: clear to auscultation bilaterally - Cardiovascular Cardiovascular exam: Present: tachycardia, other (Sinus control. Patient does have an S4 gallop.) - GI/Abdominal GI/Abdominal exam: Present: normal bowel sounds, soft - Extremities Exam Extremities exam: Present: full ROM - Back Exam Back exam: Present: normal inspection - Neurological Exam Neurological exam: Present: alert, oriented X3, CN II-XII intact - Psychiatric Psychiatric exam: Present: normal affect, normal mood - Skin Skin exam: Present: normal color, warm, dry Results - Labs CBC & BMP: 08/21/16 06:01 08/22/16 04:27 Lab Results: I have reviewed the past 24 hour labs (BNP today is 1573 (elevated) . Echocardiogram was done, he shows normal left ventricle overall ejection fraction is estimated at 36-40 there is at least mild concentric left ventricular hypertrophy. Right ventricular size and function is normal left atrium is mildly enlarged mitral valve thickening is noted with trace mitral regurgitation aortic valve is tricuspid instruction with mild sclerosis without stenosis across the valve morphology is normal morning valve is normal there is no mention of intracardiac chamber masses or vegetations. There is a none significant pericardial effusion.)
[2016-08-22 09:34] LABS: Albumin 2.8 G/DL (3.4-5.0); Bilirubin,Direct 0.1 MG/DL (0.0-0.20); Bilirubin,Indirect 0.4 MG/DL (0.0-1.0); Bilirubin,Total 0.5 MG/DL (0.2-1.0)
--- NOTE | 2016-08-22 09:39 | XRay Report ---
XR chest 1V portable Indication: Congestive heart failure Comparison: 21 August 2016 Findings: The heart and mediastinum are stable in size and configuration. The pulmonary vascularity is decreased with decreasing interstitial lung density. No other lung infiltrates, effusions, pneumothorax or other abnormality is demonstrated. Impression: Findings suggest improving cardiac decompensation. PROCEDURE INTERPRETED AT [facility] Final Report Signed by: Dr. Juan Carlos Cuello
[2016-08-22] MEDS: PANTOPRAZOLE 40 MG TABLET PO SCH (09:52)
[2016-08-22] MEDS: METOPROLOL TARTRATE 25 MG TABLET PO SCH ×2 (09:52→21:20)
[2016-08-22] MEDS: POTASSIUM CHLORIDE 20 MEQ TABLET PO PRN ×2 (09:53→11:58)
[2016-08-22] MEDS: LISINOPRIL 5 MG TABLET PO SCH (09:53)
[2016-08-22] MEDS: amLODIPine 5 MG TABLET PO SCH (09:53)
[2016-08-22] MEDS: FUROSEMIDE 40 MG/4 ML VIAL IV SCH ×2 (09:54→21:14)
--- NOTE | 2016-08-22 10:12 | Physician Query Form ---
CLICK EDIT DOCUMENT TO SELECT QUERY ANSWER --> OK --> SIGN Loyda Myers RN, CCDS Certified Clinical Computer Technical Support Specialist W) [phone] (f) [phone] [email or web address] PROVIDERS: Make your selection(s) from the choices in EACH section by typing an "x" and enter comments in the comment section. Please use your independent medical judgment in providing your response. This request does not imply that any particular answer is desired or expected. CLINICAL INDICATORS: (Providers should not edit this section) The medical record indicates that the patient was admitted with Hypertensive Emergency, CHF Acute, BNP of 1148# and the patient was treated with IV Lasix.___ Echo revealed EF 35-40%. Please provide further specificity regarding CHF. TYPE: (x ) Systolic ( x) Diastolic ( ) Combined Systolic/Diastolic ( ) Other, please specify: ( ) Clinically unable to determine ( ) The patient does NOT have CHF COMMENTS: Use of terms such as suspected, likely, or probable (associated with a specific diagnosis that is being evaluated, monitored, or treated as if it exists) are acceptable and can be restated in the discharge summary if not ruled out. MTDD
--- NOTE | 2016-08-22 10:12 | Physician Query Form ---
CLICK EDIT DOCUMENT TO SELECT QUERY ANSWER --> OK --> SIGN Loyda Myers RN, CCDS Certified Clinical Collections Professional W) [phone] (f) [phone] [email or web address] PROVIDERS: Make your selection(s) from the choices in EACH section by typing an "x" and enter comments in the comment section. Please use your independent medical judgment in providing your response. This request does not imply that any particular answer is desired or expected. CLINICAL INDICATORS: (Providers should not edit this section) The medical record indicates that the patient was admitted with CHF acute, RR 26 / Sat's 98%, "tachypneic", "Severe hypoxemia" and the patient was placed on BiPAP for several hours. If possible, please further clarify the type and acuity of respiratory diagnosis : ACUITY: (x) Acute ( ) Chronic ( ) Acute on Chronic TYPE: ( x) Respiratory failure with hypoxia ( ) Respiratory failure with hypercapnia ( ) Respiratory Arrest ( ) Postprocedural/postoperative respiratory failure ( ) Respiratory Insufficiency ( ) ARDS (Adult/Acute Respiratory Distress Syndrome) ( ) Other, please specify: ( ) Clinically unable to determine Recognized criteria for respiratory failure PH <7.35 or >7.45 PO2 <60 PCO2 >50 RR >24 O2 Sat <90% on RA or <95% on O2 Use of accessory muscles Unable to speak in full sentences Intubation is not required COMMENTS: Use of terms such as suspected, likely, or probable (associated with a specific diagnosis that is being evaluated, monitored, or treated as if it exists) are acceptable and can be restated in the discharge summary if not ruled out. MTDD
--- NOTE | 2016-08-22 11:49 | Pulmonology Progress Note ---
Pulmonary - PN: Subj Interval history: Wiley Malave, ANP-BC, GNP-BC, acting as scribe for Dr. Tray Bustillo Ms. Rojo is a 76 year old black female who we saw in initial pulmonary consultation on 08/21/16. At that time, our impressions were: 1. Acute severe shortness of breath. Based on chest x-ray and lab this appears to be acute congestive heart failure. Chest x-ray is markedly change compared to an old chest x-ray 2. Severe hypoxemia probably secondary to #1. Look for other causes. 3. High blood pressure under poor control prior to admission. 4. History of gastroesophageal reflux disease. 5. Abnormal liver function tests. Etiology undetermined. 6. Elevated TSH and free T4. We will repeat free T4 is these are not likely correct. 7. Elevated glucoses. Look for underlying diabetes mellitus. 08/22/16. The patient appears markedly improved this morning. She is on nasal cannula and her oxygenation remains adequate. Echocardiogram showed an EF of 35- 40%, small pericardial effusion, and small pleural effusion. BNP is 1573. Doppler venograms, renal US, liver US, and carotids were normal. We have discussed the case today with Dr. Murray and coordinated our care. Her potassium is low, but she is on the potassium replacement protocol. Medications have been reviewed. Labs have been reviewed. Exam (Progress Note) - Constitutional Vitals: Period Temp Pulse Resp BP Sys/Rivas Pulse Ox Last 24 Hr 97 F-98.4 F 76-100 14-28 99-147/49-130 95-100 Exam: Chest is fairly clear Heart no gallop Abd is nontender and nondistended; BS positive x 4 Ext with nothing to suggest acute DVT Psych oriented x 3 Neuro long tract motor function is intact Plan: Continue present treatment. Daily CXR and ABGs. Potassium replacement protocol. Results - Labs CBC & BMP: 08/21/16 06:01 08/22/16 04:27
[2016-08-23 03:35] LABS: ABG Base Excess 10.7 MMOL/L (-2.5-2.5); ABG HCO3 34.2 MMOL/L (20-26); ABG Oxygen Saturation 94.8 % (95-100); ABG PCO2 40.7 MM HG (35-48); ABG PH 7.542 (7.35-7.45); ABG TCO2 35.4 MMOL/L (23-27); Allen Test Positive; Pt O2 Delivery Device Room Air
[2016-08-23] MEDS: ENOXAPARIN 40 MG/0.4 ML SYRINGE SUBCUT SCH (06:40)
[2016-08-23] MEDS: NITROGLYCERIN DRIP 50 MG/250 ML BOTTLE IV SCH (07:25)
[2016-08-23 07:27] VITALS: BP 130/69
[2016-08-23] MEDS: POTASSIUM CHLORIDE 20 MEQ TABLET PO PRN ×2 (08:27→11:06)
[2016-08-23] MEDS: METOPROLOL TARTRATE 25 MG TABLET PO SCH (08:27)
[2016-08-23] MEDS: LISINOPRIL 5 MG TABLET PO SCH (08:27)
[2016-08-23] MEDS: FUROSEMIDE 40 MG/4 ML VIAL IV SCH (08:27)
[2016-08-23] MEDS: PANTOPRAZOLE 40 MG TABLET PO SCH (08:27)
[2016-08-23] MEDS: amLODIPine 5 MG TABLET PO SCH (08:27)
--- NOTE | 2016-08-23 08:57 | XRay Report ---
History: CHF Date: 08/23/2016 Study: Chest x-ray AP portable Comparison exam: August 22, 2016 There is continued cardiomegaly. The pulmonary vasculature is borderline to slightly prominent. There is some mild hazy edema in the lower lungs, grossly similar. There is no increasing pleural effusion. Osseous structures are unchanged. Impression: Continued CHF with some mild bibasilar pulmonary edema, grossly similar PROCEDURE INTERPRETED AT [facility] DEPARTMENT OF RADIOLOGY Final Report Signed by: Dr. Doris Pena
[2016-08-23] MEDS ORDERED: MULTIVITAMIN (CENTRUM) TABLET PO SCH (09:00)
[2016-08-23] MEDS ORDERED: TIMOLOL 0.5% OPH SOLN 5 ML BOTTLE BOTH EYES SCH (09:00)
--- NOTE | 2016-08-23 10:15 | Discharge Summary ---
Hospital Course - Hospital Course Hospital Course: Ms. Rojo is a 76-year-old -[place] female with no significant medical history admitted to the hospitalist service on 08/21/2016 in acute congestive heart failure due to hypertensive emergency. Patient was placed on BiPAP and aggressively diuresed. Pulmonary Dr. Bustillo, and cardiology were both consulted. Patient has been started on Norvasc, metoprolol, and lisinopril. She seems to be tolerating these medications well with her blood pressures running from 109-130 systolic. Patient is breathing much better with just a few crackles at her lower lung bases this morning. She feels good and is ready for discharge home. Patient's potassium was low this morning so it will be replaced with p.o. medication. She will be discharged home on 40 of potassium daily for 1 week. She will need to follow-up with her primary care physician which is Donnie in [place] in 1 week with a BNP. She will also follow- up with Dr. Murray in his office in 2 weeks. Complete discharge instructions were given to the patient total discharge time took approximately 37 minutes. This included coordination of care with Dr. Murray, the beater dumper, Dr. Macias, the hospitalist, patient, nursing, discharge paperwork and instructions. - Time spent with patient Time with patient DS: Greater than 30 minutes Diagnosis - Discharge Diagnosis (1) Hypertensive emergency Status: Resolved (2) Pulmonary edema Status: Resolved (3) Acute CHF Status: Resolved Discharge Plan - Discharge Data Disposition: Disch To Home/Self Care Condition at Discharge: Stable Discharge Diet: heart healthy Activity: resume usual activities as tolerated Hygiene: no restrictions Driving: no restrictions Contact your physician if you experience:: Shortness of breath - Discharge Medications New Metoprolol Tartrate Tab [Lopressor Tab] 25 mg PO BID #60 tablet Potassium Chloride Cap/Tab [K Dur] 40 meq PO DAILY #7 tablet amLODIPine [Norvasc] 5 mg PO DAILY #30 tablet Lisinopril [Prinivil] 5 mg PO DAILY #30 tablet Continue Timolol 0.5% Oph Soln [Timoptic 0.5%] 1 drop BOTH EYES QAM Multivitamin [One Daily] 1 each PO DAILY - Follow Up or Referral Follow Up: Dany Murray MD [Physician] - 2 Weeks Prudence Fields FNP [Advanced Practice Nurse] - 1 Week (with BNP, follow up potassium) - Forms/Instructions Exam - Constitutional Vitals: Period Temp Pulse Resp BP Sys/Rivas Pulse Ox Last 24 Hr 97.4 F-99.4 F 90-106 16-19 100-130/57-69 93-100 Exam: 76-year-old -Pal[place] female, no acute distress, alert and oriented Chest with few crackles at lung bases CV regular rate and rhythm Abdomen soft and nontender Extremities with no edema Discharge Results Procedures and tests throughout hospitalization: Pending Orders 08/21/16 Free T3 (Triiodothyronine), S Stat 08/24/16 04:00 XR chest 1V portable IN AM ABG [Arterial Blood Gas] IN AM 08/25/16 04:00 XR chest 1V portable IN AM ABG [Arterial Blood Gas] IN AM Labs on day of discharge: Labs from last 24 hours 08/23/16 08/23/16 07:26 03:27 ABG pH 7.542 H ABG pCO2 40.7 ABG pO2 74.0 L ABG HCO3 34.2 H ABG Total CO2 35.4 H ABG O2 Saturation 94.8 L ABG Base Excess 10.7 H FiO2 21.00 Potassium 3.2 L DS: Provider Date of admission: 08/21/16 06:52 Primary care physician: Rudy Celaya MD Attending physician on admission: Manpreet Fernandez MD Consults: 08/21/16 07:14 Consult to Pharmacy [CONS] Routine Reason for Pharmacy Consult: Adjust Meds Renal Funct 08/21/16 07:59 Consult to Physician [CONS] Routine Comment: Consulting Provider: Tray Bustillo When should Consulting Provider be notified: Now Person Notified: chi Date Notified: 08/21/16 Time Notified: 09:00 Discharging clinician: STEPH Delatorre Expected date of discharge: 08/23/16
--- NOTE | 2016-08-23 10:39 | Discharge Summary ---
Hospital Course - Hospital Course Hospital Course: Hospital Course - Hospital Course Hospital Course: Ms. Rojo is a 76-year-old -[place] female with no significant medical history admitted to the hospitalist service on 08/21/2016 in acute congestive heart failure due to hypertensive emergency. Patient was placed on BiPAP and aggressively diuresed. Pulmonary Dr. Bustillo, and cardiology were both consulted. Patient has been started on Norvasc, metoprolol, and lisinopril. She seems to be tolerating these medications well with her blood pressures running from 109-130 systolic. Patient is breathing much better with just a few crackles at her lower lung bases this morning. She feels good and is ready for discharge home. Patient's potassium was low this morning so it will be replaced with p.o. medication. She will be discharged home on 40 of potassium daily for 1 week. She will need to follow-up with her primary care physician which is Donnie in [place] in 1 week with a BNP. She will also follow- up with Dr. Murray in his office in 2 weeks. Complete discharge instructions were given to the patient total discharge time took approximately 37 minutes. This included coordination of care with Dr. Murray, the vice chairman, Dr. Macias, the hospitalist, patient, nursing, discharge paperwork and instructions. - Time spent with patient Time with patient DS: Greater than 30 minutes Diagnosis - Discharge Diagnosis (1) Hypertensive emergency Status: Resolved (2) Pulmonary edema Status: Resolved (3) Acute CHF Status: Resolved Discharge Plan - Discharge Data Disposition: Disch To Home/Self Care Condition at Discharge: Stable Discharge Diet: heart healthy Activity: resume usual activities as tolerated Hygiene: no restrictions Driving: no restrictions Contact your physician if you experience:: Shortness of breath - Discharge Medications New Metoprolol Tartrate Tab [Lopressor Tab] 25 mg PO BID #60 tablet Potassium Chloride Cap/Tab [K Dur] 40 meq PO DAILY #7 tablet amLODIPine [Norvasc] 5 mg PO DAILY #30 tablet Lisinopril [Prinivil] 5 mg PO DAILY #30 tablet Continue Timolol 0.5% Oph Soln [Timoptic 0.5%] 1 drop BOTH EYES QAM Multivitamin [One Daily] 1 each PO DAILY - Follow Up or Referral Follow Up: Dany Murray MD [Physician] - 2 Weeks Prudence Fields FNP [Advanced Practice Nurse] - 1 Week (with BNP, follow up potassium) - Forms/Instructions Exam - Constitutional Vitals: Period Temp Pulse Resp BP Sys/Rivas Pulse Ox Last 24 Hr 97.4 F-99.4 F 90-106 16-19 100-130/57-69 93-100 Exam: 76-year-old -[place] female, no acute distress, alert and oriented Chest with few crackles at lung bases CV regular rate and rhythm Abdomen soft and nontender Extremities with no edema Discharge Results Procedures and tests throughout hospitalization: Pending Orders 08/21/16 Free T3 (Triiodothyronine), S Stat 08/24/16 04:00 XR chest 1V portable IN AM ABG [Arterial Blood Gas] IN AM 08/25/16 04:00 XR chest 1V portable IN AM ABG [Arterial Blood Gas] IN AM Labs on day of discharge: Labs from last 24 hours 08/23/16 08/23/16 07:26 03:27 ABG pH 7.542 H ABG pCO2 40.7 ABG pO2 74.0 L ABG HCO3 34.2 H ABG Total CO2 35.4 H ABG O2 Saturation 94.8 L ABG Base Excess 10.7 H FiO2 21.00 Potassium 3.2 L DS: Provider Date of admission: 08/21/16 06:52 Primary care physician: Rudy Celaya MD Attending physician on admission: Manpreet Fernandez MD Consults: 08/21/16 07:14 Consult to Pharmacy [CONS] Routine Reason for Pharmacy Consult: Adjust Meds Renal Funct 08/21/16 07:59 Consult to Physician [CONS] Routine Comment: Consulting Provider: Tray Bustillo When should Consulting Provider be notified: Now Person Notified: chi Date Notified: 08/21/16 Time Notified: 09:00 Discharging clinician: STEPH Delatorre Expected date of discharge: 08/23/16 Additional CC's: Dany Fields Diagnosis - Discharge Diagnosis (1) Hypertensive emergency Status: Resolved (2) Pulmonary edema Status: Resolved Specialty Discharge - Follow Up or Referrals Follow up with: Dany Murray MD [Physician] - 2 Weeks Prudence Fields FNP [Advanced Practice Nurse] - 1 Week (with BNP, follow up potassium) Discharge Plan - Discharge Data Disposition: Disch To Home/Self Care Condition at Discharge: Stable Discharge Diet: heart healthy Activity: resume usual activities as tolerated Hygiene: no restrictions Driving: not until seen by doctor Contact your physician if you experience:: fever over 101, Shortness of breath, pain uncontrolled by pain medications - Discharge Medications New Metoprolol Tartrate Tab [Lopressor Tab] 25 mg PO BID #60 tablet Potassium Chloride Cap/Tab [K Dur] 40 meq PO DAILY #7 tablet amLODIPine [Norvasc] 5 mg PO DAILY #30 tablet Lisinopril [Prinivil] 5 mg PO DAILY #30 tablet Continue Timolol 0.5% Oph Soln [Timoptic 0.5%] 1 drop BOTH EYES QAM Multivitamin [One Daily] 1 each PO DAILY - Follow Up or Referral Follow Up: Dany Murray MD [Physician] - 2 Weeks Prudence Fields FNP [Advanced Practice Nurse] - 1 Week (with BNP, follow up potassium) - Forms/Instructions Instructions: Metoprolol (By mouth), Lisinopril (By mouth), Potassium Chloride (By mouth), Amlodipine (By mouth), Chronic Hypertension (DC), Hypertensive Crisis (DC) Exam - Constitutional Vitals: Period Temp Pulse Resp BP Sys/Rivas Pulse Ox Last 24 Hr 97.4 F-99.4 F 90-106 16-19 100-130/57-69 93-100 General appearance: normal weight - Head Head exam: Present: normal inspection, normocephalic - Eye Eye exam: Present: EOMI Pupils: Present: SHAYLA - ENT ENT exam: Present: normal exam - Neck Neck exam: Present: normal inspection - Respiratory Respiratory exam: Present: clear to auscultation bilaterally - Cardiovascular Cardiovascular exam: Present: regular rate and rhythm - GI/Abdominal GI/Abdominal exam: Present: normal bowel sounds, soft - Back Exam Back exam: Present: normal inspection - Neurological Exam Neurological exam: Present: alert, oriented X3, CN II-XII intact - Psychiatric Psychiatric exam: Present: normal affect, normal mood - Skin Skin exam: Present: normal color, warm, dry Discharge Results Procedures and tests throughout hospitalization: Pending Orders 08/21/16 Free T3 (Triiodothyronine), S Stat 08/24/16 04:00 XR chest 1V portable IN AM ABG [Arterial Blood Gas] IN AM 08/25/16 04:00 XR chest 1V portable IN AM ABG [Arterial Blood Gas] IN AM Labs on day of discharge: Labs from last 24 hours 08/23/16 08/23/16 07:26 03:27 ABG pH 7.542 H ABG pCO2 40.7 ABG pO2 74.0 L ABG HCO3 34.2 H ABG Total CO2 35.4 H ABG O2 Saturation 94.8 L ABG Base Excess 10.7 H FiO2 21.00 Potassium 3.2 L DS: Provider Date of admission: 08/21/16 06:52 Primary care physician: Rudy Celaya MD Attending physician on admission: Manpreet Fernandez MD Consults: 08/21/16 07:14 Consult to Pharmacy [CONS] Routine Reason for Pharmacy Consult: Adjust Meds Renal Funct 08/21/16 07:59 Consult to Physician [CONS] Routine Comment: Consulting Provider: Tray Bustillo When should Consulting Provider be notified: Now Person Notified: chi Date Notified: 08/21/16 Time Notified: 09:00 Discharging clinician: Anthony Macias MD
== END 2016-08-23 13:30 | disposition home or self-care (01) | DRG 291 ==
LOC: N.ED 05:48 → N.EDINP 06:51 → SUATTDRO 06:52 → N.CC 08:01 → N.5E 08-22 12:46
PROVIDERS: ADMIT Internal Medicine; ATTEND Internal Medicine Infectious Disease

== ENCOUNTER 2017-09-01 15:15 | Inpatient (IN) ==
[2017-09-01] MEDS ORDERED: ALBUTEROL 2.5 MG/3 ML NEB RESP TX STA (15:36)
[2017-09-01] MEDS ORDERED: FUROSEMIDE 100 MG/10 ML VIAL IV STA (15:36)
[2017-09-01 15:57] LABS: Basophils % 0.3 % (0.0-0.8); Eosinophils # 0.1 10*3/uL (0.0-0.87); Eosinophils % 0.8 % (0.00-10.9); Hematocrit 34.4 VOL% (35.7-47.0); Hemoglobin 11.3 GM/DL (12.0-16.0); Immature Granulocytes % 0.4 %; Immature Granulocytes Absolute 0.03 #; Lymphocytes # 2.5 10*3/uL (1.4-4.0); Lymphocytes % 33.1 % (21.3-54.2); Mean Corpuscular HGB Conc 32.8 GM/DL (32-36); Mean Corpuscular Hemoglobin 30 PG (27-34); Mean Corpuscular Volume 91.5 FL (87-102); Mean Platelet Volume 9.8 FL (9.6-12.0); Monocytes # 0.4 10*3/uL (0.11-0.8); Monocytes % 5.2 % (1.7-12.7); Neutrophils # 4.5 10*3/uL (1.4-7.4); Neutrophils % 60.2 % (38.7-73.9); Platelet Count 227 T/CUMM (130-400); Red Blood Count 3.76 MC/CUMM (3.8-5.5); Red Cell Distribution Width 17.6 % (9.3-17.3); White Blood Count 7.5 T/CUMM (4-12)
[2017-09-01 16:05] LABS: INR 1.1; Partial Thromboplastin Time 26.4 SECS (0-40)
[2017-09-01] MEDS ORDERED: ALBUTEROL/IPRATROPIUM 3 ML NEB RESP TX STA (16:08)
[2017-09-01] MEDS ORDERED: methylPREDNISolone SOD SUC 125 MG/2 ML VIAL IV STA (16:08)
[2017-09-01 16:24] LABS: Albumin 3.1 G/DL (3.4-5.0); Bilirubin,Total 0.6 MG/DL (0.2-1.0); Calcium 8.1 MG/DL (8.5-10.1); Osmolality,Calculated 283.1 MOS/KG (273-304); Potassium 2.9 MMOL/L (3.5-5.1); Total Protein 6.9 G/DL (6.4-8.3)
[2017-09-01 16:28] LABS: Troponin I Only 0.051 NG/ML (0.00-0.045)
[2017-09-01] MEDS ORDERED: MAGNESIUM SULF RIDER 2 GM in PREMIX 1 EACH IV PRN (17:45)
[2017-09-01] MEDS ORDERED: MAGNESIUM SULF RIDER 4 GM in PREMIX 1 EACH IV PRN (17:45)
[2017-09-01] MEDS ORDERED: ASPIRIN EC 81 MG TABLET PO PRN (17:45)
[2017-09-01] MEDS: METOPROLOL TARTRATE 25 MG TABLET PO SCH (20:41)
[2017-09-01] MEDS: POTASSIUM CHLORIDE RIDER 10 MEQ in PREMIX 1 EACH IV PRN ×2 (22:02→23:30)
[2017-09-02] MEDS: POTASSIUM CHLORIDE RIDER 10 MEQ in PREMIX 1 EACH IV PRN ×3 (00:51→03:27)
[2017-09-02 05:54] LABS: Basophils % 0.1 % (0.0-0.8); Hematocrit 36.3 VOL% (35.7-47.0); Hemoglobin 11.5 GM/DL (12.0-16.0); Immature Granulocytes % 0.4 %; Immature Granulocytes Absolute 0.03 #; Lymphocytes # 1.7 10*3/uL (1.4-4.0); Lymphocytes % 24.1 % (21.3-54.2); Mean Corpuscular HGB Conc 31.7 GM/DL (32-36); Mean Corpuscular Hemoglobin 29 PG (27-34); Mean Corpuscular Volume 92.4 FL (87-102); Mean Platelet Volume 9.9 FL (9.6-12.0); Monocytes # 0.2 10*3/uL (0.11-0.8); Monocytes % 2.6 % (1.7-12.7); Neutrophils # 5.1 10*3/uL (1.4-7.4); Neutrophils % 72.8 % (38.7-73.9); Platelet Count 247 T/CUMM (130-400); Red Blood Count 3.93 MC/CUMM (3.8-5.5); Red Cell Distribution Width 17.7 % (9.3-17.3)
[2017-09-02 06:21] LABS: Albumin 3.1 G/DL (3.4-5.0); Bilirubin,Total 0.8 MG/DL (0.2-1.0); Calcium 8.6 MG/DL (8.5-10.1); Potassium 3.7 MMOL/L (3.5-5.1); Total Protein 6.9 G/DL (6.4-8.3)
[2017-09-02] MEDS: amLODIPine 5 MG TABLET PO SCH (08:57)
[2017-09-02] MEDS: LISINOPRIL 5 MG TABLET PO SCH (08:57)
[2017-09-02] MEDS: METOPROLOL TARTRATE 25 MG TABLET PO SCH (08:57)
[2017-09-02] MEDS: TIMOLOL 0.5% OPH SOLN 5 ML BOTTLE BOTH EYES SCH (08:58)
[2017-09-02] MEDS ORDERED: FUROSEMIDE 40 MG/4 ML VIAL IV SCH (09:00)
[2017-09-02] MEDS: PANTOPRAZOLE 40 MG TABLET PO SCH (12:24)
[2017-09-02] MEDS: ENOXAPARIN 40 MG/0.4 ML SYRINGE SUBCUT SCH ×2 (12:24→22:56)
[2017-09-02] MEDS: FUROSEMIDE 40 MG/4 ML VIAL IV SCH (17:00)
[2017-09-02] MEDS: METOPROLOL TARTRATE 50 MG TABLET PO SCH (21:08)
[2017-09-03 04:52] LABS: Basophils % 0.3 % (0.0-0.8); Eosinophils # 0.1 10*3/uL (0.0-0.87); Eosinophils % 0.6 % (0.00-10.9); Hematocrit 32.4 VOL% (35.7-47.0); Hemoglobin 10.7 GM/DL (12.0-16.0); Immature Granulocytes % 0.4 %; Immature Granulocytes Absolute 0.04 #; Lymphocytes # 3.9 10*3/uL (1.4-4.0); Lymphocytes % 38.9 % (21.3-54.2); Mean Corpuscular Hemoglobin 30 PG (27-34); Mean Corpuscular Volume 90.3 FL (87-102); Mean Platelet Volume 9.9 FL (9.6-12.0); Monocytes # 0.6 10*3/uL (0.11-0.8); Monocytes % 5.6 % (1.7-12.7); Neutrophils # 5.4 10*3/uL (1.4-7.4); Neutrophils % 54.2 % (38.7-73.9); Platelet Count 216 T/CUMM (130-400); Red Blood Count 3.59 MC/CUMM (3.8-5.5); Red Cell Distribution Width 17.9 % (9.3-17.3)
[2017-09-03 05:26] LABS: Albumin 2.9 G/DL (3.4-5.0); Bilirubin,Total 0.9 MG/DL (0.2-1.0); Calcium 8.4 MG/DL (8.5-10.1); Osmolality,Calculated 293.6 MOS/KG (273-304); Potassium 3.2 MMOL/L (3.5-5.1); Total Protein 6.1 G/DL (6.4-8.3)
[2017-09-03] MEDS: METOPROLOL TARTRATE 50 MG TABLET PO SCH ×2 (08:32→21:39)
[2017-09-03] MEDS: TIMOLOL 0.5% OPH SOLN 5 ML BOTTLE BOTH EYES SCH (08:32)
[2017-09-03] MEDS: FUROSEMIDE 40 MG/4 ML VIAL IV SCH ×2 (08:32→16:06)
[2017-09-03] MEDS: LISINOPRIL 5 MG TABLET PO SCH (08:32)
[2017-09-03] MEDS: PANTOPRAZOLE 40 MG TABLET PO SCH (08:32)
[2017-09-03] MEDS: amLODIPine 5 MG TABLET PO SCH (08:32)
[2017-09-03] MEDS: POTASSIUM CHLORIDE 20 MEQ TABLET PO PRN ×4 (09:22→17:55)
[2017-09-03] MEDS: ENOXAPARIN 40 MG/0.4 ML SYRINGE SUBCUT SCH ×2 (11:52→23:38)
[2017-09-03 12:47] LABS: INR 1.1; PT Patient Result 11.8 SECS
[2017-09-03 13:40] LABS: Free T4 (Free Thyroxine) 1.27 NG/DL (0.76-1.46); Thyroid Stimulating Hormone 5.13 uIU/ml (0.358-3.74); Total Protein 7.2 G/DL (6.4-8.3)
[2017-09-03 15:12] LABS: Amylase,Body Fluid 16 U/L; Glucose,Pleural Fluid 126 MG/DL; LDH,Pleural Fluid 103 U/L; Total Protein,Pleural Fluid 1.3 G/DL
[2017-09-03 17:23] LABS: Lymphocytes,Pleural Fluid 80 %; Monocytes,Pleural Fluid 7 %; Neutrophils,Pleural Fluid 13 %
[2017-09-03 17:24] LABS: RBC,Pleural Fluid 212 T/CUMM
[2017-09-03] MEDS: ROSUVASTATIN 10 MG TABLET PO SCH (21:39)
[2017-09-04 05:13] LABS: Basophils % 0.3 % (0.0-0.8); Eosinophils # 0.1 10*3/uL (0.0-0.87); Hematocrit 33.2 VOL% (35.7-47.0); Hemoglobin 10.6 GM/DL (12.0-16.0); Immature Granulocytes % 0.4 %; Immature Granulocytes Absolute 0.03 #; Lymphocytes % 43.4 % (21.3-54.2); Mean Corpuscular HGB Conc 31.9 GM/DL (32-36); Mean Corpuscular Hemoglobin 29 PG (27-34); Mean Platelet Volume 9.8 FL (9.6-12.0); Monocytes # 0.4 10*3/uL (0.11-0.8); Monocytes % 5.6 % (1.7-12.7); Neutrophils # 3.4 10*3/uL (1.4-7.4); Neutrophils % 49.3 % (38.7-73.9); Platelet Count 221 T/CUMM (130-400); Red Blood Count 3.61 MC/CUMM (3.8-5.5); Red Cell Distribution Width 18.3 % (9.3-17.3)
[2017-09-04 06:15] LABS: Albumin 2.9 G/DL (3.4-5.0); Bilirubin,Total 0.6 MG/DL (0.2-1.0); Calcium 8.5 MG/DL (8.5-10.1); Osmolality,Calculated 289.7 MOS/KG (273-304); Potassium 3.8 MMOL/L (3.5-5.1); Total Protein 6.1 G/DL (6.4-8.3)
[2017-09-04 06:24] LABS: Cancer Antigen 19-9 19.4 U/ML (0-37); Carcinoembryonic Antigen 2.8 NG/ML (0.0-5.0)
[2017-09-04] MEDS: amLODIPine 5 MG TABLET PO SCH (08:41)
[2017-09-04] MEDS: PANTOPRAZOLE 40 MG TABLET PO SCH (08:41)
[2017-09-04] MEDS: FUROSEMIDE 40 MG/4 ML VIAL IV SCH ×2 (08:41→16:22)
[2017-09-04] MEDS: METOPROLOL TARTRATE 50 MG TABLET PO SCH ×2 (08:41→20:36)
[2017-09-04] MEDS: LISINOPRIL 5 MG TABLET PO SCH (08:41)
[2017-09-04] MEDS: TIMOLOL 0.5% OPH SOLN 5 ML BOTTLE BOTH EYES SCH (08:47)
[2017-09-04] MEDS: ENOXAPARIN 40 MG/0.4 ML SYRINGE SUBCUT SCH ×2 (10:31→22:44)
[2017-09-04] MEDS: LEVOFLOXACIN INJ 500 MG in PREMIX 1 EACH IV SCH (10:31)
[2017-09-04 10:40] LABS: Immunoglobulin A (Chem) 351 MG/DL (70-400); Immunoglobulin G (Chem) 1500 MG/DL (700-1600); Immunoglobulin M (Chem) 31 MG/DL (40-230); Total Protein (Chem) 7.2 G/DL (6.4-8.3)
[2017-09-04 11:14] LABS: Albumin (SPE) 3.9 G/DL (3.2-5.3); Albumin (SPE) Rel % 54.1 %; Alpha 1 (SPE) 0.3 G/DL (0.1-0.4); Alpha 1 (SPE) Rel % 4.1 %; Alpha 2 (SPE) 0.9 G/DL (0.4-1.0); Alpha 2 (SPE) Rel % 12.1 %; Beta (SPE) 0.8 G/DL (0.5-1.1); Beta (SPE) Rel % 10.7 %; Gamma (SPE) 1.3 G/DL (0.7-1.7)
[2017-09-04 13:26] LABS: Immuno Free Light Chain Lambda 2.28 MG/DL (0.57-2.63); Immuno Free Light Chain Ratio 240.35 MG/DL (0.26-1.65)
[2017-09-04 17:17] LABS: Collection Time,Urine 24 HOURS
[2017-09-04 17:18] LABS: Total Protein 24 Hr Ur Result 2836 MG/24HR (0-149.1); Total Volume,Urine 2325 ML (400-2000)
[2017-09-04] MEDS: ROSUVASTATIN 10 MG TABLET PO SCH (20:36)
[2017-09-05 05:36] LABS: Calcium 8.3 MG/DL (8.5-10.1); Osmolality,Calculated 286.8 MOS/KG (273-304); Potassium 3.5 MMOL/L (3.5-5.1)
[2017-09-05] MEDS: TIMOLOL 0.5% OPH SOLN 5 ML BOTTLE BOTH EYES SCH (09:11)
[2017-09-05] MEDS: amLODIPine 5 MG TABLET PO SCH (09:11)
[2017-09-05] MEDS: METOPROLOL TARTRATE 50 MG TABLET PO SCH ×2 (09:11→21:18)
[2017-09-05] MEDS: LISINOPRIL 5 MG TABLET PO SCH (09:11)
[2017-09-05] MEDS: FUROSEMIDE 40 MG/4 ML VIAL IV SCH ×2 (09:11→15:38)
[2017-09-05] MEDS: PANTOPRAZOLE 40 MG TABLET PO SCH (09:11)
[2017-09-05] MEDS: LEVOFLOXACIN INJ 500 MG in PREMIX 1 EACH IV SCH (10:40)
[2017-09-05] MEDS: ENOXAPARIN 40 MG/0.4 ML SYRINGE SUBCUT SCH (12:57)
[2017-09-05] MEDS: ROSUVASTATIN 10 MG TABLET PO SCH (21:18)
[2017-09-06] MEDS: ENOXAPARIN 40 MG/0.4 ML SYRINGE SUBCUT SCH ×3 (00:37→22:35)
[2017-09-06 05:27] LABS: Calcium 8.5 MG/DL (8.5-10.1); Potassium 3.2 MMOL/L (3.5-5.1)
[2017-09-06] MEDS: POTASSIUM CHLORIDE 20 MEQ TABLET PO PRN ×4 (06:18→12:38)
[2017-09-06] MEDS: amLODIPine 5 MG TABLET PO SCH (08:42)
[2017-09-06] MEDS: PANTOPRAZOLE 40 MG TABLET PO SCH (08:42)
[2017-09-06] MEDS: LISINOPRIL 5 MG TABLET PO SCH (08:42)
[2017-09-06] MEDS: FUROSEMIDE 40 MG/4 ML VIAL IV SCH ×2 (08:42→16:53)
[2017-09-06] MEDS: METOPROLOL TARTRATE 50 MG TABLET PO SCH ×2 (08:42→20:38)
[2017-09-06] MEDS: TIMOLOL 0.5% OPH SOLN 5 ML BOTTLE BOTH EYES SCH (08:43)
[2017-09-06] MEDS: LEVOFLOXACIN INJ 500 MG in PREMIX 1 EACH IV SCH (10:36)
[2017-09-06] MEDS ORDERED: FUROSEMIDE 40 MG/4 ML VIAL IV SCH (20:02)
[2017-09-06] MEDS: ROSUVASTATIN 10 MG TABLET PO SCH (20:38)
[2017-09-07 05:03] LABS: Basophils % 0.3 % (0.0-0.8); Eosinophils # 0.1 10*3/uL (0.0-0.87); Eosinophils % 1.3 % (0.00-10.9); Hematocrit 31.1 VOL% (35.7-47.0); Hemoglobin 10.1 GM/DL (12.0-16.0); Immature Granulocytes % 0.4 %; Immature Granulocytes Absolute 0.03 #; Lymphocytes # 3.2 10*3/uL (1.4-4.0); Lymphocytes % 45.3 % (21.3-54.2); Mean Corpuscular HGB Conc 32.5 GM/DL (32-36); Mean Corpuscular Hemoglobin 30 PG (27-34); Mean Corpuscular Volume 92.8 FL (87-102); Monocytes # 0.5 10*3/uL (0.11-0.8); Monocytes % 7.2 % (1.7-12.7); Neutrophils # 3.2 10*3/uL (1.4-7.4); Neutrophils % 45.5 % (38.7-73.9); Platelet Count 210 T/CUMM (130-400); Red Blood Count 3.35 MC/CUMM (3.8-5.5); Red Cell Distribution Width 18.3 % (9.3-17.3)
[2017-09-07 05:40] LABS: Albumin 2.6 G/DL (3.4-5.0); Bilirubin,Total 0.4 MG/DL (0.2-1.0); Calcium 8.4 MG/DL (8.5-10.1); Osmolality,Calculated 279.4 MOS/KG (273-304)
[2017-09-07 05:47] LABS: Giant Platelets Few; Hypochromasia 1+; Platelet Estimate Adequate
[2017-09-07] MEDS ORDERED: HEPARIN 5,000 UNIT/1 ML VIAL IV ONE (08:23)
[2017-09-07] MEDS: LISINOPRIL 10 MG TABLET PO SCH (09:15)
[2017-09-07] MEDS: CALCIUM (CARBONATE)/VITAMIN D 600 MG-400 UNIT TABLET PO SCH ×2 (09:15→21:00)
[2017-09-07] MEDS: METOPROLOL TARTRATE 50 MG TABLET PO SCH ×2 (09:16→21:00)
[2017-09-07] MEDS: amLODIPine 5 MG TABLET PO SCH (09:16)
[2017-09-07] MEDS: PANTOPRAZOLE 40 MG TABLET PO SCH (09:16)
[2017-09-07] MEDS: TIMOLOL 0.5% OPH SOLN 5 ML BOTTLE BOTH EYES SCH (09:22)
[2017-09-07] MEDS: LEVOFLOXACIN INJ 500 MG in PREMIX 1 EACH IV SCH (09:22)
[2017-09-07] MEDS: ENOXAPARIN 40 MG/0.4 ML SYRINGE SUBCUT SCH ×2 (11:15→23:30)
[2017-09-07] MEDS ORDERED: LIDOCAINE 1% 20 ML VIAL MISC INJ ONE (13:13)
[2017-09-07] MEDS: FUROSEMIDE 40 MG TABLET PO SCH (15:15)
[2017-09-07] MEDS: ROSUVASTATIN 10 MG TABLET PO SCH (21:00)
[2017-09-08 05:53] LABS: Basophils % 0.3 % (0.0-0.8); Eosinophils # 0.1 10*3/uL (0.0-0.87); Hematocrit 30.7 VOL% (35.7-47.0); Hemoglobin 10.1 GM/DL (12.0-16.0); Immature Granulocytes % 0.3 %; Immature Granulocytes Absolute 0.02 #; Lymphocytes # 3.2 10*3/uL (1.4-4.0); Lymphocytes % 45.2 % (21.3-54.2); Mean Corpuscular HGB Conc 32.9 GM/DL (32-36); Mean Corpuscular Hemoglobin 30 PG (27-34); Mean Corpuscular Volume 91.1 FL (87-102); Mean Platelet Volume 9.9 FL (9.6-12.0); Monocytes # 0.5 10*3/uL (0.11-0.8); Monocytes % 7.3 % (1.7-12.7); Neutrophils # 3.3 10*3/uL (1.4-7.4); Neutrophils % 45.9 % (38.7-73.9); Platelet Count 210 T/CUMM (130-400); Red Blood Count 3.37 MC/CUMM (3.8-5.5); Red Cell Distribution Width 18.4 % (9.3-17.3); White Blood Count 7.1 T/CUMM (4-12)
[2017-09-08 06:45] LABS: Albumin 2.8 G/DL (3.4-5.0); Bilirubin,Total 1.4 MG/DL (0.2-1.0); Osmolality,Calculated 280.1 MOS/KG (273-304); Potassium 3.6 MMOL/L (3.5-5.1); Total Protein 6.1 G/DL (6.4-8.3)
[2017-09-08 07:38] VITALS: BP 130/62
[2017-09-08] MEDS: FUROSEMIDE 40 MG TABLET PO SCH (08:49)
[2017-09-08] MEDS: amLODIPine 5 MG TABLET PO SCH (08:49)
[2017-09-08] MEDS: PANTOPRAZOLE 40 MG TABLET PO SCH (08:49)
[2017-09-08] MEDS: METOPROLOL TARTRATE 50 MG TABLET PO SCH (08:49)
[2017-09-08] MEDS: LISINOPRIL 10 MG TABLET PO SCH (08:49)
[2017-09-08] MEDS: POTASSIUM CHLORIDE 20 MEQ TABLET PO PRN (08:49)
[2017-09-08] MEDS: CALCIUM (CARBONATE)/VITAMIN D 600 MG-400 UNIT TABLET PO SCH (08:57)
[2017-09-08] MEDS: TIMOLOL 0.5% OPH SOLN 5 ML BOTTLE BOTH EYES SCH (08:57)
[2017-09-08] MEDS: LEVOFLOXACIN INJ 500 MG in PREMIX 1 EACH IV SCH (09:00)
[2017-09-08 09:42] LABS: 24 Hr Protein (Bench) 2836 MG/24HR (0-149.1); Albumin (UPE) 300.6 MG/24H; Albumin (UPE) Rel % 10.6 %; Alpha 1 (UPE) 306.3 MG/24H; Alpha 1 (UPE) Rel % 10.8 %; Alpha 2 (UPE) 130.5 MG/24H; Alpha 2 (UPE) Rel % 4.6 %; Beta (UPE) 102.1 MG/24H; Beta (UPE) Rel % 3.6 %
[2017-09-08 09:43] LABS: Gamma (UPE) 1996.5 MG/24H; Gamma (UPE) Rel % 70.4 %
[2017-09-08] MEDS ORDERED: ERGOCALCIFEROL 50,000 UNIT CAPSULE PO SCH (11:00)
[2017-09-08] MEDS: ENOXAPARIN 40 MG/0.4 ML SYRINGE SUBCUT SCH (11:26)
== END 2017-09-08 12:06 | disposition home or self-care (01) | DRG 292 ==
LOC: EDBD → EDUNIT# → N.ED 15:15 → N.EDINP 17:06 → N.TELES 18:40

== ENCOUNTER 2017-10-07 14:03 | Inpatient (IN) ==
[2017-10-07] MEDS ORDERED: SODIUM CHLORIDE 0.9% 1,000 ML IV ONE ×2 (15:31→20:53)
[2017-10-07] MEDS ORDERED: MAGNESIUM HYDROXIDE SUSP 30 ML UDCUP PO PRN (15:57)
[2017-10-07] MEDS ORDERED: ALPRAZolam 0.25 MG TABLET PO PRN (15:57)
[2017-10-07] MEDS ORDERED: TEMAZEPAM 7.5 MG CAPSULE PO PRN (15:57)
[2017-10-07] MEDS ORDERED: diphenhydrAMINE CAP 25 MG CAPSULE PO PRN (15:57)
[2017-10-07] MEDS ORDERED: traMADol 50 MG TABLET PO PRN (15:57)
[2017-10-07] MEDS ORDERED: chlorproMAZINE INJ 25 MG in SODIUM CHLORIDE 0.9% 100 ML IV PRN (15:57)
[2017-10-07] MEDS ORDERED: PROMETHAZINE INJ 25 MG in SODIUM CHLORIDE 0.9% 50 ML IV PRN (15:57)
[2017-10-07] MEDS ORDERED: ONDANSETRON 4 MG/2 ML VIAL IV PRN (15:57)
[2017-10-07] MEDS ORDERED: LOPERAMIDE 2 MG CAPSULE PO PRN ×2 (15:57)
[2017-10-07] MEDS ORDERED: MYLANTA/LIDO VISC 2:1 300 ML BOTTLE SWISH/SPIT PRN (15:57)
[2017-10-07] MEDS ORDERED: LACTULOSE 20 GM/30 ML UDCUP PO PRN (15:57)
[2017-10-07] MEDS ORDERED: ACETAMINOPHEN 325 MG TABLET PO PRN (15:57)
[2017-10-07] MEDS ORDERED: chlorproMAZINE 25 MG TABLET PO PRN (15:57)
[2017-10-07] MEDS ORDERED: BENZTROPINE 2 MG/2 ML AMP IV PRN (15:57)
[2017-10-07] MEDS ORDERED: ALUMINUM/MAGNES/SIMETH MAX STR 30 ML UDCUP PO PRN (15:57)
[2017-10-07] MEDS ORDERED: chlorproMAZINE INJ 50 MG in SODIUM CHLORIDE 0.9% 100 ML IV PRN (15:57)
[2017-10-07] MEDS ORDERED: MYLANTA/LIDO VISC 2:1 300 ML BOTTLE SWISH/SWAL PRN (15:57)
[2017-10-07] MEDS ORDERED: guaiFENesin 200 MG/10 ML UDCUP PO PRN (15:57)
[2017-10-07] MEDS ORDERED: SODIUM CHLORIDE 0.9% 1,000 ML IV SCH (16:00)
[2017-10-07] MEDS ORDERED: ASPIRIN EC 81 MG TABLET PO PRN (16:31)
[2017-10-07] MEDS: CALCIUM (CARBONATE)/VITAMIN D 600 MG-400 UNIT TABLET PO SCH (20:52)
[2017-10-07] MEDS: ENOXAPARIN 30 MG/0.3 ML SYRINGE SUBCUT SCH (20:52)
[2017-10-07] MEDS ORDERED: METOPROLOL TARTRATE 25 MG TABLET PO SCH (21:00)
[2017-10-07] MEDS: SODIUM CHLORIDE 0.9% 1,000 ML IV SCH (23:51)
[2017-10-08 05:35] LABS: Basophils # 0.1 10*3/uL (0.0-0.2); Basophils % 0.8 % (0.0-0.8); Eosinophils # 0.1 10*3/uL (0.0-0.87); Hematocrit 34.7 VOL% (35.7-47.0); Hemoglobin 11.9 GM/DL (12.0-16.0); Immature Granulocytes % 1.2 %; Immature Granulocytes Absolute 0.07 #; Lymphocytes # 1.9 10*3/uL (1.4-4.0); Lymphocytes % 31.8 % (21.3-54.2); Mean Corpuscular HGB Conc 34.3 GM/DL (32-36); Mean Corpuscular Hemoglobin 30 PG (27-34); Mean Corpuscular Volume 86.8 FL (87-102); Mean Platelet Volume 12.3 FL (9.6-12.0); Monocytes # 0.2 10*3/uL (0.11-0.8); Monocytes % 3.5 % (1.7-12.7); Neutrophils # 3.7 10*3/uL (1.4-7.4); Neutrophils % 61.7 % (38.7-73.9); Platelet Count 174 T/CUMM (130-400); Red Cell Distribution Width 15.8 % (9.3-17.3); White Blood Count 5.9 T/CUMM (4-12)
[2017-10-08 06:05] LABS: Anisocytosis 1+; Poikilocytosis 1+; Target Cells Slight
[2017-10-08 06:15] LABS: Albumin 2.7 G/DL (3.4-5.0); Bilirubin,Total 1.1 MG/DL (0.2-1.0); Calcium 7.2 MG/DL (8.5-10.1); Osmolality,Calculated 291.7 MOS/KG (273-304); Potassium 3.4 MMOL/L (3.5-5.1); Total Protein 6.6 G/DL (6.4-8.3)
[2017-10-08] MEDS ORDERED: amLODIPine 5 MG TABLET PO SCH (09:00)
[2017-10-08] MEDS ORDERED: POTASSIUM CHLORIDE 20 MEQ TABLET PO ONE (09:24)
[2017-10-08] MEDS: CALCIUM (CARBONATE)/VITAMIN D 600 MG-400 UNIT TABLET PO SCH ×2 (09:46→20:20)
[2017-10-08] MEDS: PANTOPRAZOLE 40 MG TABLET PO SCH (09:46)
[2017-10-08] MEDS: SODIUM CHLORIDE 0.9% 1,000 ML IV SCH ×2 (09:46→23:13)
[2017-10-08] MEDS: TIMOLOL 0.5% OPH SOLN 5 ML BOTTLE BOTH EYES SCH (10:55)
[2017-10-08] MEDS: ENOXAPARIN 30 MG/0.3 ML SYRINGE SUBCUT SCH (20:20)
[2017-10-09 05:22] LABS: Basophils % 0.8 % (0.0-0.8); Eosinophils # 0.1 10*3/uL (0.0-0.87); Eosinophils % 2.3 % (0.00-10.9); Hematocrit 31.5 VOL% (35.7-47.0); Immature Granulocytes % 1.3 %; Immature Granulocytes Absolute 0.07 #; Lymphocytes # 1.8 10*3/uL (1.4-4.0); Lymphocytes % 33.6 % (21.3-54.2); Mean Corpuscular HGB Conc 34.9 GM/DL (32-36); Mean Corpuscular Hemoglobin 31 PG (27-34); Mean Platelet Volume 11.8 FL (9.6-12.0); Monocytes # 0.2 10*3/uL (0.11-0.8); Monocytes % 3.6 % (1.7-12.7); Neutrophils # 3.1 10*3/uL (1.4-7.4); Neutrophils % 58.4 % (38.7-73.9); Platelet Count 132 T/CUMM (130-400); Red Blood Count 3.58 MC/CUMM (3.8-5.5); Red Cell Distribution Width 15.8 % (9.3-17.3); White Blood Count 5.3 T/CUMM (4-12)
[2017-10-09 05:49] LABS: Calcium 7.5 MG/DL (8.5-10.1); Osmolality,Calculated 284.3 MOS/KG (273-304); Potassium 3.8 MMOL/L (3.5-5.1)
[2017-10-09 06:55] LABS: Hypochromasia 2+; Target Cells Slight
[2017-10-09 08:24] VITALS: BP 105/48
[2017-10-09] MEDS: TIMOLOL 0.5% OPH SOLN 5 ML BOTTLE BOTH EYES SCH (09:47)
[2017-10-09] MEDS: PANTOPRAZOLE 40 MG TABLET PO SCH (09:47)
[2017-10-09] MEDS: CALCIUM (CARBONATE)/VITAMIN D 600 MG-400 UNIT TABLET PO SCH (09:47)
== END 2017-10-09 12:35 | disposition home or self-care (01) | DRG 683 ==
LOC: N.4E
PROVIDERS: ADMIT Internal Medicine Hematology & Oncology; ATTEND Internal Medicine Hematology & Oncology